=== PATIENT | male | born 1990 | race Caucasian/White ===

== ENCOUNTER 2016-12-05 02:37 | Emergency (ER) | payer SELFPAY ==
[2016-12-05 02:54] VITALS: RESP 16; TEMP 97.3
--- NOTE | 2016-12-05 03:21 | ED ---
General Adult HPI - General Source: police, EMS Mode of arrival: EMS Limitations: no limitations <Rosalind Frias - Last Filed: 12/07/16 15:08> - History of Present Illness -: minutes(s) Quality: sharp Consistency: constant Improves with: none Worsens with: none <Doron Navarro - Last Filed: 12/28/16 07:35> - General Chief complaint: Wound/Laceration Stated complaint: laceration - History of Present Illness Initial comments: Patient is 26-year-old man who is in police custody. He is brought to be evaluated for a laceration to his fifth digit sustained when he punched a window , breaking it. The patient denies foreign body sensation. He states that he does have sensation to the digit. (Doron Navarro) - Related Data Allergies Allergy/AdvReac Type Severity Reaction Status Date / Time Penicillins Allergy Unknown Verified 12/05/16 02:45 Review of Systems ROS Other: All systems not noted in ROS Statement are negative. <Rosalind Frias - Last Filed: 12/07/16 15:08> ROS Other: All systems not noted in ROS Statement are negative. Constitutional: Denies: fever, weakness Respiratory: Denies: dyspnea Cardiovascular: Denies: chest pain Skin: Reports: as per HPI, other (Laceration) Neurological: Denies: weakness, numbness, paresthesias <Doron Navarro - Last Filed: 12/28/16 07:35> ROS Statement: Those systems with pertinent positive or pertinent negative responses have been documented in the HPI. Past Medical History Past Medical History: No Reported History History of Any Multi-Drug Resistant Organisms: None Reported Past Surgical History: No Surgical Hx Reported Past Psychological History: No Psychological Hx Reported Smoking Status: Current every day smoker Past Alcohol Use History: Occasional Past Drug Use History: Marijuana <Rosalind Frias - Last Filed: 12/07/16 15:08> General Exam Limitations: no limitations <Rosalind Frias - Last Filed: 12/07/16 15:08> General appearance: alert, in no apparent distress Head exam: Present: atraumatic, normocephalic Left Hand Wrist exam: Present: other (Laceration to the fifth digit.) Neurosensory exam: Present: 2-point discrimination, radial nerve intact, ulnar nerve intact, median nerve intact Vascular: Present: normal capillary refill, radial pulse (Normal), ulnar pulse ( Normal). Absent: vascular compromise Neurological exam: Present: alert. Absent: motor sensory deficit Skin exam: Present: other (Laceration as above) <RamonDoron - Last Filed: 12/28/16 07:35> Procedures <Rosalind Frias - Last Filed: 12/07/16 15:08> <RamonDoron - Last Filed: 12/28/16 07:35> - Procedures Initial comment: The skin was anesthetized with 1% lidocaine. The laceration was then cleansed and irrigated with normal saline. The wound was inspected, and there was no evidence of injury to deep structures. No foreign body was noted in the wound. A total of 9 skin sutures were placed utilizing 5-0 Ethilon. Lacerations are approx 1 cm and 1 cm. (Rosalind Frias) Disposition <Rosalind Frias - Last Filed: 12/07/16 15:08> - Out of Hospital Transfer - Req. Specs Out of Hospital Transfer - Requested Specifics: Other Non-Acute (Detention) <RamonDoron - Last Filed: 12/28/16 07:35> Clinical Impression: Laceration Disposition: OTHER INSTITUTION NOT DEFINED Condition: Fair Instructions: Care For Your Stitches (ED), Laceration (ED) Referrals: None,Stated [Primary Care Provider] - 1-2 days
[2016-12-05 03:50] VITALS: BP 109/84; PULSE 86
== END 2016-12-05 03:49 | disposition other institution (70) ==
LOC: EC 02:37
DX: S61.217A Laceration without foreign body of left little finger without damage to nail, initial encounter (principal); Z88.0 Allergy status to penicillin; F17.200 Nicotine dependence, unspecified, uncomplicated; X58.XXXA Exposure to other specified factors, initial encounter
CPT/HCPCS: 12001; 99283

== ENCOUNTER 2020-04-02 12:35 | Emergency (ER) | payer BC ==
[2020-04-02 12:52] VITALS: TEMP 98.9
[2020-04-02] MEDS ORDERED: LORazepam 1 MG TAB PO STA (13:50)
[2020-04-02] MEDS ORDERED: ONDANSETRON ODT 4 MG TAB PO STA (13:50)
[2020-04-02] MEDS ORDERED: ONDANSETRON 4 MG ODT STARTER PACK 2 TAB BTL PO STA (13:54)
--- NOTE | 2020-04-02 13:54 | ED ---
General Adult HPI - General Chief complaint: Recheck/Abnormal Lab/Rx Stated complaint: Dehydrated Time Seen by Provider: 04/02/20 12:50 Source: patient, RN notes reviewed, old records reviewed Mode of arrival: ambulatory Limitations: no limitations - History of Present Illness Initial comments: This is a 30-year-old male who presents emergency Department complaining that he is extremely hung over thinks she's dehydrated. Patient states she's very nauseated since been difficult to drink any water. Patient does not want any IV or needles to draw blood. Patient states he just needs some for nausea. Patient denies any chest pain difficulty breathing first breath per patient denies any recent fever chills or cough. Patient states he is doing outpatient rehab with [facility] but he is failing. - Related Data Allergies Allergy/AdvReac Type Severity Reaction Status Date / Time Penicillins Allergy Unknown Verified 04/02/20 12:52 Review of Systems ROS Statement: Those systems with pertinent positive or pertinent negative responses have been documented in the HPI. ROS Other: All systems not noted in ROS Statement are negative. Past Medical History Past Medical History: No Reported History History of Any Multi-Drug Resistant Organisms: None Reported Past Surgical History: No Surgical Hx Reported Past Psychological History: No Psychological Hx Reported Smoking Status: Current every day smoker Past Alcohol Use History: Abuse, Heavy Past Drug Use History: Marijuana General Exam - General Exam Comments Initial Comments: GENERAL: Patient is well-developed and well-nourished. Patient is nontoxic and well- hydrated and is in no acute distress. ENT: Neck is soft and supple. No significant lymphadenopathy is noted. Oropharynx is clear. Dry mucous membranes. Neck has full range of motion without eliciting any pain. EYES: The sclera were anicteric and conjunctiva were pink and moist. Extraocular movements were intact and pupils were equal round and reactive to light. Eyelids were unremarkable. PULMONARY: Unlabored respirations. Good breath sounds bilaterally. No audible rales rhonchi or wheezing was noted. CARDIOVASCULAR: There is a regular rate and rhythm without any murmurs gallops or rubs. ABDOMEN: Soft and nontender with normal bowel sounds. No palpable organomegaly was noted. There is no palpable pulsatile mass. SKIN: Skin is clear with no lesions or rashes and otherwise unremarkable. NEUROLOGIC: Patient is alert and oriented x3. Cranial nerves II through XII are grossly intact. Motor and sensory are also intact. Normal speech, volume and content. Symmetrical smile. MUSCULOSKELETAL: Normal extremities with adequate strength and full range of motion. LYMPHATICS: No significant lymphadenopathy is noted PSYCHIATRIC: Patient appears to be very anxious Limitations: no limitations Course Vital Signs 04/02/20 12:49 Temperature 98.9 F Pulse Rate 104 H Respiratory 18 Rate Blood Pressure 146/94 O2 Sat by Pulse 98 Oximetry Disposition Clinical Impression: Dehydration, Hangover, Alcohol abuse Disposition: HOME SELF-CARE Condition: Good Instructions (If sedation given, give patient instructions): Abuse of Alcohol (ED) Is patient prescribed a controlled substance at d/c from ED?: No Referrals: None,Stated [Primary Care Provider] - 1-2 days Time of Disposition: 13:54
[2020-04-02 14:09] VITALS: BP 145/94; PULSE 100
[2020-04-02 14:11] VITALS: RESP 20
== END 2020-04-02 14:11 | disposition home or self-care (01) ==
LOC: EC 12:35
DX: F10.129 Alcohol abuse with intoxication, unspecified (principal); E86.0 Dehydration; F17.200 Nicotine dependence, unspecified, uncomplicated; Z88.0 Allergy status to penicillin; Y90.9 Presence of alcohol in blood, level not specified
CPT/HCPCS: 99284; S0119

== ENCOUNTER 2021-01-17 11:31 | Emergency (ER) | payer BC, OTHER ==
[2021-01-17 11:37] VITALS: RESP 18; TEMP 98.7
[2021-01-17] MEDS ORDERED: SODIUM CHLORIDE 0.9% 2,000 ML IV STA (11:47)
[2021-01-17] MEDS ORDERED: ONDANSETRON 4 MG/2 ML VIAL IVP STA ×2 (11:47→13:39)
[2021-01-17] MEDS ORDERED: LORazepam 2 MG/ML INJ IV STA (11:48)
--- NOTE | 2021-01-17 11:50 | ED ---
General Adult HPI - General Chief complaint: Nausea/Vomiting/Diarrhea Stated complaint: N/V/D Time Seen by Provider: 01/17/21 11:38 Source: patient, RN notes reviewed Mode of arrival: ambulatory Limitations: no limitations - History of Present Illness Initial comments: 31-year-old male with a past medical history of heavy alcohol abuse, marijuana use presents to the emergency room for a little nausea vomiting. Patient states he has had nausea and vomiting for the past 3 days. He states that his drinking is probably not helped. States he usually sticks to drinking on the weekends but has drank the last 2 nights. States of complaint of vodka last night. Patient denies any abdominal pain. He does admit to a few episodes of diarrhea. Patient has no other complaints at this time including shortness of breath, chest pain, abdominal pain, headache, or visual changes. - Related Data Home Medications Medication Instructions Recorded Confirmed Citalopram Hydrobromide 20 mg PO HS 01/17/21 01/17/21 [Citalopram HBr] atenoloL [Atenolol] 25 mg PO DAILY 01/17/21 01/17/21 Previous Rx's Medication Instructions Recorded Ondansetron [Zofran ODT] 4 mg PO Q8HR PRN #15 tab 01/17/21 Allergies Allergy/AdvReac Type Severity Reaction Status Date / Time Penicillins Allergy Unknown Verified 01/17/21 12:40 Review of Systems ROS Statement: Those systems with pertinent positive or pertinent negative responses have been documented in the HPI. ROS Other: All systems not noted in ROS Statement are negative. Past Medical History Past Medical History: No Reported History History of Any Multi-Drug Resistant Organisms: None Reported Past Surgical History: No Surgical Hx Reported Past Psychological History: Anxiety, Depression Smoking Status: Current every day smoker Past Alcohol Use History: Abuse, Heavy Past Drug Use History: Marijuana General Exam Limitations: no limitations General appearance: alert, in no apparent distress Head exam: Present: atraumatic, normocephalic, normal inspection Eye exam: Present: normal appearance, PERRL, EOMI. Absent: scleral icterus, conjunctival injection, periorbital swelling ENT exam: Present: normal exam, mucous membranes moist Neck exam: Present: normal inspection. Absent: tenderness, meningismus, lymphadenopathy Respiratory exam: Present: normal lung sounds bilaterally. Absent: respiratory distress, wheezes, rales, rhonchi, stridor Cardiovascular Exam: Present: regular rate, normal rhythm, normal heart sounds. Absent: systolic murmur, diastolic murmur, rubs, gallop, clicks GI/Abdominal exam: Present: soft, normal bowel sounds. Absent: distended, tenderness, guarding, rebound, rigid Course Vital Signs 01/17/21 01/17/21 01/17/21 11:34 12:37 13:00 Temperature 98.7 F Pulse Rate 137 H 116 H 120 H Respiratory 18 18 18 Rate Blood Pressure 134/91 139/105 141/102 O2 Sat by Pulse 96 96 96 Oximetry Medical Decision Making - Medical Decision Making Patient presents with tachycardia. This is likely secondary to alcohol withdrawals. Laboratory evaluation was obtained. CBC does show hemoconcentration secondary to dehydration. CMP also reveals evidence of dehydr ation. Transaminitis is likely secondary to alcohol abuse. AG of 22 likely related to alcoholic ketosis. Serum alcohol today is 152. Patient was monitored in the ER for over 3 hours. He was given 2 L of fluid. He was given antiemetics. The vomiting has subsided. Patient was given Ativan and Valium for withdrawal symptoms. At this time patient is stable for discharge home. Will return here for any worsening symptoms. I discussed this case with attending Dr. nguyễn who agrees with this assessment and treatment plan. - Lab Data Result diagrams: 01/17/21 11:58 01/17/21 11:58 Lab Results 01/17/21 01/17/21 01/17/21 Range/Units 11:49 11:58 11:58 WBC 7.9 (3.8-10.6) k/uL RBC 5.34 (4.30-5.90) m/uL Hgb 18.4 H (13.0-17.5) gm/dL Hct 50.9 (39.0-53.0) % MCV 95.4 (80.0-100.0) fL MCH 34.4 (25.0-35.0) pg MCHC 36.1 (31.0-37.0) g/dL RDW 12.4 (11.5-15.5) % Plt Count 315 (150-450) k/uL MPV 7.1 Neutrophils % 77 % Lymphocytes % 15 % Monocytes % 6 % Eosinophils % 1 % Basophils % 0 % Neutrophils # 6.1 (1.3-7.7) k/uL Lymphocytes # 1.2 (1.0-4.8) k/uL Monocytes # 0.5 (0-1.0) k/uL Eosinophils # 0.0 (0-0.7) k/uL Basophils # 0.0 (0-0.2) k/uL Sodium 137 (137-145) mmol/L Potassium 4.1 (3.5-5.1) mmol/L Chloride 101 (98-107) mmol/L Carbon Dioxide 14 L (22-30) mmol/L Anion Gap 22 mmol/L BUN 21 H (9-20) mg/dL Creatinine 1.26 H (0.66-1.25) mg/dL Est GFR (CKD-EPI)AfAm 89 (>60 ml/min/1.73 sqM) Est GFR (CKD-EPI)NonAf 77 (>60 ml/min/1.73 sqM) Glucose 109 H (74-99) mg/dL Calcium 9.4 (8.4-10.2) mg/dL Total Bilirubin 1.0 (0.2-1.3) mg/dL AST 397 H (17-59) U/L ALT 182 H (4-49) U/L Alkaline Phosphatase 98 (38-126) U/L Total Protein 8.5 H (6.3-8.2) g/dL Albumin 4.8 (3.5-5.0) g/dL Amylase 83 (30-110) U/L Lipase 302 H (23-300) U/L Serum Alcohol 152 mg/dL Coronavirus (PCR) Not Detected (Not Detectd) Disposition Clinical Impression: Nausea & vomiting, Alcohol withdrawal Disposition: HOME SELF-CARE Condition: Good Instructions (If sedation given, give patient instructions): Acute Nausea and Vomiting (ED) Additional Instructions: Please follow up with primary care in 1-2 days. Take nausea medicine as needed. Drink plenty of fluids. Return to the ER for any worsening symptoms. Prescriptions: Ondansetron [Zofran ODT] 4 mg PO Q8HR PRN #15 tab PRN Reason: Nausea Is patient prescribed a controlled substance at d/c from ED?: No Referrals: Haim Dent MD [Primary Care Provider] - 1-2 days Time of Disposition: 14:41
[2021-01-17 12:21] LABS: Basophils % (A) 0 %; Eosinophils % (A) 1 %; HCT 50.9 % (39.0-53.0); HGB 18.4 gm/dL (13.0-17.5); Lymphocytes # (A) 1.2 k/uL (1.0-4.8); Lymphocytes % (A) 15 %; MCH 34.4 pg (25.0-35.0); MCHC 36.1 g/dL (31.0-37.0); MCV 95.4 fL (80.0-100.0); Mean Platelet Volume 7.1; Monocytes # (A) 0.5 k/uL (0-1.0); Monocytes % (A) 6 %; Neutrophils # (A) 6.1 k/uL (1.3-7.7); Neutrophils % (A) 77 %; Platelet Count 315 k/uL (150-450); RBC 5.34 m/uL (4.30-5.90); RDW 12.4 % (11.5-15.5); WBC 7.9 k/uL (3.8-10.6)
[2021-01-17 12:33] LABS: Albumin 4.8 g/dL (3.5-5.0); Calcium 9.4 mg/dL (8.4-10.2); Potassium 4.1 mmol/L (3.5-5.1); Total Protein 8.5 g/dL (6.3-8.2)
[2021-01-17] MEDS ORDERED: DIAZEPAM 5 MG/ML 2 ML INJ IVP STA (13:38)
[2021-01-17 14:58] VITALS: BP 145/90; PULSE 108
== END 2021-01-17 14:57 | disposition home or self-care (01) ==
LOC: EC 11:31
DX: F10.139 Alcohol abuse with withdrawal, unspecified (principal); F12.90 Cannabis use, unspecified, uncomplicated; F41.9 Anxiety disorder, unspecified; F32.9 Major depressive disorder, single episode, unspecified; F17.200 Nicotine dependence, unspecified, uncomplicated; Z88.0 Allergy status to penicillin; Z20.822 Contact with and (suspected) exposure to COVID-19
CPT/HCPCS: 36415; 80053; 82150; 83690; 85025; 87635; 99284; 96374; 96375; 96376; 96361; G0480; J2060; J3360; J2405; 80320

== ENCOUNTER 2023-08-01 09:44 | Observation (INO) | payer OTHER ==
--- NOTE | 2023-08-01 15:07 | ED ---
General Adult HPI - General Source: patient, RN notes reviewed, old records reviewed Mode of arrival: ambulatory Limitations: no limitations <Dg Todd - Last Filed: 08/01/23 14:57> - History of Present Illness -: days(s) Consistency: constant Improves with: none Worsens with: none Treatments Prior to Arrival: none <Manuel Rayo - Last Filed: 08/03/23 23:47> - General Chief complaint: Psychiatric Symptoms Stated complaint: Mental Health Time Seen by Provider: 08/01/23 09:51 - History of Present Illness Initial comments: Patient is a 33-year-old male who presents emergency Department complaining of psychiatric complaints. He is feeling suicidal. Recently completed withdrawing from alcohol. No longer having symptoms. States he is having thoughts of hurting himself and occasionally others. No plans or attempts. Endorses worsening depression. His home stressors. No other acute complaints at this time. Presents for further evaluation at this time. (Dg Todd) 33 male DF for psychiatric evaluation secondary to suicidal thoughts. Severe depression with acute on stressors recently which then went to detox from alcohol (Manuel Rayo) - Related Data Home Medications Medication Instructions Recorded Confirmed Fenofibrate,Micronized 134 mg PO DAILY 08/01/23 08/01/23 [Fenofibrate] Mag Hydrox/Aluminum Hyd/Simeth 10 - 20 ml PO ACHS PRN 08/01/23 08/01/23 [Mylanta Maximum Strength Liq] Multivitamins, Thera [Multivitamin 1 tab PO DAILY 08/01/23 08/01/23 (formulary)] Vitamin B Complex 1 cap PO DAILY 08/01/23 08/01/23 traZODone HCL [Desyrel] 50 mg PO HS PRN 08/02/23 08/02/23 Previous Rx's Medication Instructions Recorded Metoprolol Succinate (ER) [Toprol 25 mg PO DAILY #30 tab 08/02/23 Xl] Allergies Allergy/AdvReac Type Severity Reaction Status Date / Time Penicillins Allergy Rash/Hives Verified 08/01/23 18:19 Review of Systems ROS Other: All systems not noted in ROS Statement are negative. <Dg Todd - Last Filed: 08/01/23 14:57> ROS Other: All systems not noted in ROS Statement are negative. <Manuel Rayo - Last Filed: 08/03/23 23:47> ROS Statement: Those systems with pertinent positive or pertinent negative responses have been documented in the HPI. Review of Systems: CONST: Denies fever EYES: Denies blurry vision ENT: Denies nasal congestion C/V: Denies Chest pain RESP: Denies shortness of breath GI: Denies abdominal pain : Denies dysuria SKIN: Denies rash. MSK: Denies joint pain. NEURO: Denies headache PSYCH: Denies suicidal and homicidal plans/attempts but endorses ideations. Denies visual or auditory hallucinations. (Dg Todd) Past Medical History Past Medical History: Hypertension Additional Past Medical History / Comment(s): Etoh abuse History of Any Multi-Drug Resistant Organisms: None Reported Past Surgical History: No Surgical Hx Reported Past Psychological History: Anxiety, Depression Smoking Status: Current every day smoker Past Alcohol Use History: Abuse, Daily, Heavy Past Drug Use History: Marijuana <Dg Todd - Last Filed: 08/01/23 14:57> General Exam Limitations: no limitations <Dg Todd - Last Filed: 08/01/23 14:57> General appearance: alert, in no apparent distress, anxious, in distress Head exam: Present: atraumatic, normocephalic, normal inspection Eye exam: Present: normal appearance, PERRL, EOMI. Absent: scleral icterus, conjunctival injection, periorbital swelling ENT exam: Present: normal exam, mucous membranes moist Neck exam: Present: normal inspection. Absent: tenderness, meningismus, lymphadenopathy Respiratory exam: Present: normal lung sounds bilaterally. Absent: respiratory distress, wheezes, rales, rhonchi, stridor Cardiovascular Exam: Present: regular rate, normal rhythm, normal heart sounds. Absent: systolic murmur, diastolic murmur, rubs, gallop, clicks GI/Abdominal exam: Present: soft, normal bowel sounds. Absent: distended, tenderness, guarding, rebound, rigid Extremities exam: Present: normal inspection, full ROM, normal capillary refill. Absent: tenderness, pedal edema, joint swelling, calf tenderness Back exam: Present: normal inspection Neurological exam: Present: alert, oriented X3, CN II-XII intact Psychiatric exam: Present: normal affect, normal mood Skin exam: Present: warm, dry, intact, normal color. Absent: rash <Manuel Rayo - Last Filed: 08/03/23 23:47> - General Exam Comments Initial Comments: General: Appears in no acute distress. No evidence of alcohol withdrawals at this time. HEAD: Normal with no signs of head trauma. EYES: PERRLA, EOMI, conjunctiva normal, no discharge. ENT: Hearing grossly intact, normal oropharynx. RESPIRATORY: Clear breath sounds bilaterally. No wheezes, rales, or rhonchi. C/V: Regular rate and rhythm. S1 and S2 auscultated, no edema, peripheral pulses 2+ and intact throughout ABD: Abd is soft, nontender, nondistended EXT: Normal range of motion, no obvious deformity SKIN: No rashes or lesions observed on exposed skin. NEURO: Alert and oriented x 4. (Dg Todd) Course <Manuel Rayo - Last Filed: 08/03/23 23:47> Vital Signs 08/01/23 08/01/23 09:47 21:27 Temperature 97.7 F Pulse Rate 70 92 Respiratory 20 18 Rate Blood Pressure 129/94 138/94 O2 Sat by Pulse 99 98 Oximetry - Reevaluation(s) Reevaluation #1: 08/01/23 20:40 Medical records reviewed (Manuel Rayo) Reevaluation #2: 08/01/23 20:40 Patient is depressed and medical clear for psychiatric evaluation (Manuel Rayo) Reevaluation #3: 08/01/23 20:40 Patient informed results questions answered (Manuel Rayo) Reevaluation #4: 08/01/23 20:40 Was pt. sent in by a medical professional or institution (, PA, RUBBER GOODS INSPECTOR, urgent care, hospital, or fdc...) When possible be specific @ -no Did you speak to anyone other than the patient for history (EMS, parent, family, police, friend...)? What history was obtained from this source @ -no Did you review nursing and triage notes (agree or disagree)? Why? @ -agree Are old charts reviewed (outside hosp., previous admission, EMS record, old EKG, old radiological studies, urgent care reports/EKG's, fdc records)? Report findings @ -yes Differential Diagnosis (chest pain, altered mental status, abdominal pain women, abdominal pain men, vaginal bleeding, weakness, fever, dyspnea, syncope, headache, dizziness, GI bleed, back pain, seizure, CVA, palpatations, mental health, musculoskeletal)? @ -prior EKG interpreted by me (3pts min.). @ -no X-rays interpreted by me (1pt min.). @ -no CT interpreted by me (1pt min.). @ -no U/S interpreted by me (1pt. min.). @ -no What testing was considered but not performed or refused? (CT, X-rays, U/S, labs)? Why? @ -none What meds were considered but not given or refused? Why? @ -none Did you discuss the management of the patient with other professionals (professionals i.e. , PA, RUBBER GOODS INSPECTOR, lab, RT, psych nurse, social sciences instructor, infrastructure solutions architect, teacher, community cultural development officer, comp field case manager)? Give summary @ -no Was smoking cessation discussed for >3mins.? @ -no Was critical care preformed (if so, how long)? @ -no Were there social determinants of health that impacted care today? How? (Homelessness, low income, unemployed, alcoholism, drug addiction, transportation, low edu. Level, literacy, decrease access to med. care, prison, rehab)? @ -none Was there de-escalation of care discussed even if they declined (Discuss DNR or withdrawal of care, Hospice)? DNR status @ -no What co-morbidities impacted this encounter? (DM, HTN, Smoking, COPD, CAD, Cancer, CVA, ARF, Chemo, Hep., AIDS, mental health diagnosis, sleep apnea, morbid obesity)? @ -none Was patient admitted / discharged? Hospital course, mention meds given and route, prescriptions, significant lab abnormalities, going to OR and other pertinent info. @ - 33 male to the emergency department for evaluation not stable for transfer to psychiatric inpatient, has been tonight secondary to alcoholic hepatitis. Patient will be admitted for psychiatric evaluation and suicidal ideation management Admitted Undiagnosed new problem with uncertain prognosis? @ -no Drug Therapy requiring intensive monitoring for toxicity (Heparin, Nitro, Insulin, Cardizem)? @ -no Were any procedures done? @ -no Diagnosis/symptom? @ -Occult hepatitis, suicidal ideation Acute, or Chronic, or Acute on Chronic? @ -Acute Uncomplicated (without systemic symptoms) or Complicated (systemic symptoms)? @ -Complicated Side effects of treatment? @ -no Exacerbation, Progression, or Severe Exacerbation? @ -exacerbation Poses a threat to life or bodily function? How? (Chest pain, [place], [place], pneumonia, PE, COPD, DKA, ARF, appy, cholecystitis, CVA, Diverticulitis, Homicidal, Suicidal, threat to staff... and all critical care pts) @ -yes (Manuel Rayo) Medical Decision Making <Dg Todd - Last Filed: 08/01/23 14:57> - Lab Data Result diagrams: 08/02/23 04:41 08/02/23 04:41 <Manuel Rayo - Last Filed: 08/03/23 23:47> - Medical Decision Making Was pt. sent in by a medical professional or institution (, PA, RUBBER GOODS INSPECTOR, urgent care, hospital, or fdc...) When possible be specific @ -No Did you speak to anyone other than the patient for history (EMS, parent, family, police, friend...)? What history was obtained from this source @ -No Did you review nursing and triage notes (agree or disagree)? Why? @ -I reviewed and agree with nursing and triage notes Were old charts reviewed (outside hosp., previous admission, EMS record, old EKG, old radiological studies, urgent care reports/EKG's, fdc records)? Report findings @ -No old charts were reviewed Differential Diagnosis (chest pain, altered mental status, abdominal pain women, abdominal pain men, vaginal bleeding, weakness, fever, dyspnea, syncope, headache, dizziness, GI bleed, back pain, seizure, CVA, palpatations, mental health, musculoskeletal)? @ -Differential Mental Health Depression, anxiety, bipolar, psychosis, schizophrenia, borderline personality, situational depression, adjustment disorder, behavioral disorder, brain tumor, malingering, substance abuse, encephalopathy, medication reaction, dementia, hypothyroidism, degenerative neurologic disorder, lupus.... This is not meant to be all-inclusive list EKG interpreted by me (3pts min.). @ -None done X-rays interpreted by me (1pt min.). @ -None done CT interpreted by me (1pt min.). @ -None done U/S interpreted by me (1pt. min.). @ -None done What testing was considered but not performed or refused? (CT, X-rays, U/S, labs)? Why? @ -None What meds were considered but not given or refused? Why? @ -None Did you discuss the management of the patient with other professionals (professionals i.e. Dr., PA, RUBBER GOODS INSPECTOR, lab, RT, psych nurse, social sciences instructor, infrastructure solutions architect, teacher, community cultural development officer, comp field case manager)? Give summary @ -No Was smoking cessation discussed for >3mins.? @ -No Was critical care preformed (if so, how long)? @ -No Were there social determinants of health that impacted care today? How? (Homelessness, low income, unemployed, alcoholism, drug addiction, hoffman sportation, low edu. Level, literacy, decrease access to med. care, prison, rehab)? @ -No Was there de-escalation of care discussed even if they declined (Discuss DNR or withdrawal of care, Hospice)? DNR status @ -No What co-morbidities impacted this encounter? (DM, HTN, Smoking, COPD, CAD, Cancer, CVA, ARF, Chemo, Hep., AIDS, mental health diagnosis, sleep apnea, morbid obesity)? @ -None Was patient admitted / discharged? Hospital course, mention meds given and route, prescriptions, significant lab abnormalities, going to OR and other pertinent info. @ -Based on patient's presentation and physical exam, presents for psychiatric evaluation. Vital signs within acceptable limits. Patient placed in green scrubs. Sitter and suicide precautions ordered. BAT is 0. UDS is pending. At this time patient medically cleared for evaluation by psychiatry. Disposi tion pending psychiatric evaluation. EPS notified for consult. EPS Megan updated me the patient is pending inpatient admission. Patient be transferred for psychiatric admission. Clinical certificate completed by myself. Undiagnosed new problem with uncertain prognosis? @ -No Drug Therapy requiring intensive monitoring for toxicity (Heparin, Nitro, Insulin, Cardizem)? @ -No Were any procedures done? @ -No Diagnosis/symptom? @ -Encounter for psychiatric evaluation, suicidal ideations Acute, or Chronic, or Acute on Chronic? @ -Acute Uncomplicated (without systemic symptoms) or Complicated (systemic symptoms)? @ -Uncomplicated Side effects of treatment? @ -No Exacerbation, Progression, or Severe Exacerbation? @ -No Poses a threat to life or bodily function? How? (Chest pain, [place], [place], pneumonia, PE, COPD, DKA, ARF, appy, cholecystitis, CVA, Diverticulitis, Homicidal, Suicidal, threat to staff... and all critical care pts) @ -Yes (Dg Todd) 33 male who will be admitted for psychiatric evaluation and treatment patient does have significant alcoholic hepatitis and doesn't admit for transfer to outside facility. Due to patient's complicated condition patient will be admitted here for psychiatric evaluation and medical evaluation of hepatitis (Manuel Rayo) - Lab Data Lab Results 08/01/23 08/01/23 08/01/23 Range/Units 15:51 15:51 15:51 WBC 8.9 (3.8-10.6) k/uL RBC 5.42 (4.30-5.90) m/uL Hgb 18.2 H (13.0-17.5) gm/dL Hct 52.5 (39.0-53.0) % MCV 96.9 (80.0-100.0) fL MCH 33.7 (25.0-35.0) pg MCHC 34.7 (31.0-37.0) g/dL RDW 13.1 (11.5-15.5) % Plt Count 260 (150-450) k/uL MPV 7.4 Sodium (137-145) mmol/L Potassium (3.5-5.1) mmol/L Chloride (98-107) mmol/L Carbon Dioxide (22-30) mmol/L Anion Gap mmol/L BUN (9-20) mg/dL Creatinine (0.66-1.25) mg/dL Est GFR (CKD-EPI)AfAm (>60 ml/min/1.73 sqM) Est GFR (CKD-EPI)NonAf (>60 ml/min/1.73 sqM) Glucose (74-99) mg/dL Calcium (8.4-10.2) mg/dL Total Bilirubin (0.2-1.3) mg/dL AST (17-59) U/L ALT (4-49) U/L Alkaline Phosphatase (38-126) U/L Total Protein (6.3-8.2) g/dL Albumin (3.5-5.0) g/dL Urine Color Yellow Urine Appearance Clear (Clear) Urine pH 6.0 (5.0-8.0) Ur Specific [place] 1.029 (1.001-1.035) Urine Protein 1+ H (Negative) Urine Glucose (UA) Negative (Negative) Urine Ketones Negative (Negative) Urine Blood Negative (Negative) Urine Nitrite Negative (Negative) Urine Bilirubin Negative (Negative) Urine Urobilinogen 3.0 (<2.0) mg/dL Ur Leukocyte Esterase Negative (Negative) Urine RBC 1 (0-5) /hpf Urine WBC <1 (0-5) /hpf Urine Mucus Many H (None) /hpf Urine Opiates Screen Not Detected (NotDetected) Ur Oxycodone Screen Not Detected (NotDetected) Urine Methadone Screen Not Detected (NotDetected) Ur Propoxyphene Screen Not Detected (NotDetected) Ur Barbiturates Screen Not Detected (NotDetected) U Tricyclic Antidepress Not Detected (NotDetected) Ur Phencyclidine Scrn Not Detected (NotDetected) Ur Amphetamines Screen Not Detected (NotDetected) U Methamphetamines Scrn Not Detected (NotDetected) U Benzodiazepines Scrn Not Detected (NotDetected) Urine Cocaine Screen Not Detected (NotDetected) U Marijuana (THC) Screen Detected H (NotDetected) Coronavirus (PCR) (Not Detectd) 08/01/23 08/01/23 Range/Units 15:51 15:51 WBC (3.8-10.6) k/uL RBC (4.30-5.90) m/uL Hgb (13.0-17.5) gm/dL Hct (39.0-53.0) % MCV (80.0-100.0) fL MCH (25.0-35.0) pg MCHC (31.0-37.0) g/dL RDW (11.5-15.5) % Plt Count (150-450) k/uL MPV Sodium 134 L (137-145) mmol/L Potassium 4.2 (3.5-5.1) mmol/L Chloride 100 (98-107) mmol/L Carbon Dioxide 23 (22-30) mmol/L Anion Gap 11 mmol/L BUN 16 (9-20) mg/dL Creatinine 1.14 (0.66-1.25) mg/dL Est GFR (CKD-EPI)AfAm >90 (>60 ml/min/1.73 sqM) Est GFR (CKD-EPI)NonAf 86 (>60 ml/min/1.73 sqM) Glucose 107 H (74-99) mg/dL Calcium 9.5 (8.4-10.2) mg/dL Total Bilirubin 1.4 H (0.2-1.3) mg/dL AST 228 H (17-59) U/L ALT 148 H (4-49) U/L Alkaline Phosphatase 76 (38-126) U/L Total Protein 8.2 (6.3-8.2) g/dL Albumin 4.4 (3.5-5.0) g/dL Urine Color Urine Appearance (Clear) Urine pH (5.0-8.0) Ur Specific [place] (1.001-1.035) Urine Protein (Negative) Urine Glucose (UA) (Negative) Urine Ketones (Negative) Urine Blood (Negative) Urine Nitrite (Negative) Urine Bilirubin (Negative) Urine Urobilinogen (<2.0) mg/dL Ur Leukocyte Esterase (Negative) Urine RBC (0-5) /hpf Urine WBC (0-5) /hpf Urine Mucus (None) /hpf Urine Opiates Screen (NotDetected) Ur Oxycodone Screen (NotDetected) Urine Methadone Screen (NotDetected) Ur Propoxyphene Screen (NotDetected) Ur Barbiturates Screen (NotDetected) U Tricyclic Antidepress (NotDetected) Ur Phencyclidine Scrn (NotDetected) Ur Amphetamines Screen (NotDetected) U Methamphetamines Scrn (NotDetected) U Benzodiazepines Scrn (NotDetected) Urine Cocaine Screen (NotDetected) U Marijuana (THC) Screen (NotDetected) Coronavirus (PCR) Not Detected (Not Detectd) Disposition <Dg Todd - Last Filed: 08/01/23 14:57> Is patient prescribed a controlled substance at d/c from ED?: No Time of Disposition: 20:40 <Manuel Rayo - Last Filed: 08/03/23 23:47> Clinical Impression: Encounter for psychological evaluation, Suicidal ideation, Alcoholic hepatitis, Depression Disposition: ADMITTED IP TO THIS HOSP Condition: Fair
[2023-08-01 16:03] LABS: HCT 52.5 % (39.0-53.0); HGB 18.2 gm/dL (13.0-17.5); MCH 33.7 pg (25.0-35.0); MCHC 34.7 g/dL (31.0-37.0); MCV 96.9 fL (80.0-100.0); Mean Platelet Volume 7.4; Platelet Count 260 k/uL (150-450); RBC 5.42 m/uL (4.30-5.90); RDW 13.1 % (11.5-15.5); WBC 8.9 k/uL (3.8-10.6)
[2023-08-01 16:22] LABS: ALT 148 U/L (4-49); AST 228 U/L (17-59); African American GFR (CKD) >90 (>60 ml/min/1.73 sqM); Albumin 4.4 g/dL (3.5-5.0); Alkaline Phosphatase 76 U/L (38-126); Anion Gap 11 mmol/L; Blood Urea Nitrogen 16 mg/dL (9-20); Calcium 9.5 mg/dL (8.4-10.2); Carbon Dioxide 23 mmol/L (22-30); Chloride 100 mmol/L (98-107); Glucose 107 mg/dL (74-99); Non-African American GFR(CKD) 86 (>60 ml/min/1.73 sqM); Potassium 4.2 mmol/L (3.5-5.1); Sodium 134 mmol/L (137-145); Total Bilirubin 1.4 mg/dL (0.2-1.3); Total Protein 8.2 g/dL (6.3-8.2)
[2023-08-01 19:13] LABS: Appearance,Urine Clear (Clear); Bilirubin,Urine Negative (Negative); Blood,Urine Negative (Negative); Color,Urine Yellow; Glucose,Urine (UA) Negative (Negative); Ketones,Urine Negative (Negative); Leukocyte Esterase,Urine Negative (Negative); Mucus,Urine Many /hpf; Nitrite,Urine Negative (Negative); Protein,Urine 1+ (Negative); RBC,Urine 1 /hpf (0-5); Specific Gravity,Urine 1.029 (1.001-1.035); WBC,Urine <1 /hpf (0-5)
[2023-08-01 19:35] LABS: Amphetamine Screen,Urine Not Detected (NotDetected); Barbiturate Screen,Urine Not Detected (NotDetected); Benzodiazepines Screen,Urine Not Detected (NotDetected); Cocaine Screen,Urine Not Detected (NotDetected); Methadone Screen, Urine Not Detected (NotDetected); Opiate Screen,Urine Not Detected (NotDetected); Oxycodone Screen, Urine Not Detected (NotDetected); Phencyclidine Screen,Urine Not Detected (NotDetected); Tricyclic Antidepressant,Urine Not Detected (NotDetected); Urn Cannabinoid Scrn Detected (NotDetected)
[2023-08-01] MEDS ORDERED: ONDANSETRON 4 MG/2 ML VIAL IVP PRN (20:37)
[2023-08-01] MEDS ORDERED: NALOXONE 0.4 MG/ML 1 ML VIAL IV PRN (20:37)
[2023-08-01] MEDS ORDERED: LORazepam 2 MG/ML INJ IV PRN ×3 (20:39)
[2023-08-01] MEDS: SODIUM CHLORIDE 0.9% 1,000 ML IV SCH ×2 (21:22→22:29)
[2023-08-02 05:32] LABS: Basophils % (A) 0 %; Eosinophils # (A) 0.2 k/uL (0-0.7); Eosinophils % (A) 3 %; HCT 46.2 % (39.0-53.0); HGB 15.7 gm/dL (13.0-17.5); Lymphocytes # (A) 1.8 k/uL (1.0-4.8); Lymphocytes % (A) 32 %; MCH 34.1 pg (25.0-35.0); MCHC 33.9 g/dL (31.0-37.0); MCV 100.6 fL (80.0-100.0); Mean Platelet Volume 7.4; Monocytes # (A) 0.5 k/uL (0-1.0); Monocytes % (A) 8 %; Neutrophils # (A) 3.2 k/uL (1.3-7.7); Neutrophils % (A) 55 %; Platelet Count 180 k/uL (150-450); RBC 4.59 m/uL (4.30-5.90); RDW 13.2 % (11.5-15.5); WBC 5.7 k/uL (3.8-10.6)
[2023-08-02 05:50] LABS: ALT 157 U/L (4-49); AST 258 U/L (17-59); African American GFR (CKD) >90 (>60 ml/min/1.73 sqM); Albumin 3.6 g/dL (3.5-5.0); Alkaline Phosphatase 72 U/L (38-126); Anion Gap 7 mmol/L; Blood Urea Nitrogen 14 mg/dL (9-20); Calcium 8.5 mg/dL (8.4-10.2); Carbon Dioxide 23 mmol/L (22-30); Chloride 105 mmol/L (98-107); Glucose 101 mg/dL (74-99); Magnesium 2.1 mg/dL (1.6-2.3); Non-African American GFR(CKD) >90 (>60 ml/min/1.73 sqM); Phosphorus 3.7 mg/dL (2.5-4.5); Potassium 4.4 mmol/L (3.5-5.1); Sodium 135 mmol/L (137-145); Total Bilirubin 0.9 mg/dL (0.2-1.3); Total Protein 6.7 g/dL (6.3-8.2)
--- NOTE | 2023-08-02 07:09 | P.DS ---
Providers Date of admission: 08/01/23 20:37 Attending physician: Jose De Jesus Aleman Consults: 08/01/23 20:37 Consult Physician Routine Consulting Provider: Austyn Benavides Consult Reason/Comments: suicidal Do you want consulting provider notified?: Yes Primary care physician: Talha Garg [facility] Course: Patient is a 33-year-old pleasant male came in for alcohol withdrawals. Patient to stop drinking more than 2 days ago has been undergoing withdrawals. Although today he only received the 1 mg 1 time dose of Ativan so far since hospitalization. Patient withdraws significant improved. Patient is also depressed always has thoughts of doesn't want to live but doesn't have a plan for sweets side never attempted suicide. Patient does have history of hypertension and is on atenolol at home but his blood pressure is low normal patient is bit tachycardic at this time patient is receiving IV fluids denied any abdominal pain nausea vomiting patient drinks usually one fifth of alcohol on daily basis attempted to quit many times was unable to quit by himself. He does smoke marijuana occasionally REVIEW OF SYSTEMS: CONSTITUTIONAL: No fever, no malaise, no fatigue. HEENT: No recent visual problems or hearing problems. Denied any sore throat. CARDIOVASCULAR: No chest pain, orthopnea, PND, no palpitations, no syncope. PULMONARY: No shortness of breath, no cough, no hemoptysis. GASTROINTESTINAL: No diarrhea, no nausea, no vomiting, no abdominal pain. NEUROLOGICAL: No headaches, no weakness, no numbness. HEMATOLOGICAL: Denies any bleeding or petechiae. GENITOURINARY: Denies any burning micturition, frequency, or urgency. MUSCULOSKELETAL/RHEUMATOLOGICAL: Denies any joint pain, swelling, or any muscle pain. ENDOCRINE: Denies any polyuria or polydipsia. The rest of the 14-point review of systems is negative. PHYSICAL EXAMINATION: GENERAL: The patient is alert and oriented x3, not in any acute distress. Well developed, well nourished. HEENT: Pupils are round and equally reacting to light. EOMI. No scleral icterus. No conjunctival pallor. Normocephalic, atraumatic. No pharyngeal erythema. No thyromegaly. CARDIOVASCULAR: S1 and S2 present. No murmurs, rubs, or gallops. PULMONARY: Chest is clear to auscultation, no wheezing or crackles. ABDOMEN: Soft, nontender, nondistended, normoactive bowel sounds. No palpable organomegaly. MUSCULOSKELETAL: No joint swelling or deformity. EXTREMITIES: No cyanosis, clubbing, or pedal edema. NEUROLOGICAL: Gross neurological examination did not reveal any focal deficits. SKIN: No rashes. Assessment and plan -Alcohol withdrawals which improved patient will be monitored until later in the day when we and will be discharged on as needed Librium. As there is a concern about depression and trying to hurt himself patient will need clearance from psychiatry before can be discharged. -Alcohol abuse: Counseling was provided and the psychotherapist social worker will be consulted to provide him with the resources for cessation of alcohol -Tachycardia part of which is reflex tachycardia as he didn't receive his atenolol at this morning has patient's blood pressures his low switched to metoprolol -Hypertension presently hypotensive -Hyperlipidemia -Obesity Depression: Management as mentioned above -Acute alcoholic hepatitis expected to improve with cessation of alcohol -Hypervolemic hyponatremia improved with IV fluids Patient will be discharged today if cleared by psychiatry and after evaluation with social work Patient Condition at Discharge: Fair Plan - Discharge Summary New Discharge Prescriptions: New chlordiazePOXIDE HCl [Librium] 25 mg PO QID 3 Days #12 capsule Metoprolol Succinate (ER) [Toprol Xl] 25 mg PO DAILY #30 tab Continue Multivitamins, Thera [Multivitamin (formulary)] 1 tab PO DAILY Fenofibrate,Micronized [Fenofibrate] 134 mg PO DAILY Trazodone (Unknown Dose) 1 tab PO HS PRN PRN Reason: Insomnia Vitamin B Complex 1 cap PO DAILY Mag Hydrox/Aluminum Hyd/Simeth [Mylanta Maximum Strength Liq] 10 - 20 ml PO ACHS PRN PRN Reason: Acid indigestion Discontinued atenoloL 25 mg PO DAILY Discharge Medication List Fenofibrate,Micronized [Fenofibrate] 134 mg PO DAILY 08/01/23 [History] Mag Hydrox/Aluminum Hyd/Simeth [Mylanta Maximum Strength Liq] 10 - 20 ml PO ACHS PRN 08/01/23 [History] Multivitamins, Thera [Multivitamin (formulary)] 1 tab PO DAILY 08/01/23 [History] Trazodone (Unknown Dose) 1 tab PO HS PRN 08/01/23 [History] Vitamin B Complex 1 cap PO DAILY 08/01/23 [History] Metoprolol Succinate (ER) [Toprol Xl] 25 mg PO DAILY #30 tab 08/02/23 [Rx] chlordiazePOXIDE HCl [Librium] 25 mg PO QID 3 Days #12 capsule 08/02/23 [Rx] Follow up Appointment(s)/Referral(s): Talha Garg MD [Primary Care Provider] - 3 Days Discharge Disposition: HOME SELF-CARE
--- NOTE | 2023-08-02 07:09 | P.HPIM ---
History of Present Illness Patient is a 33-year-old pleasant male came in for alcohol withdrawals. Patient to stop drinking more than 2 days ago has been undergoing withdrawals. Although today he only received the 1 mg 1 time dose of Ativan so far since hosp italization. Patient withdraws significant improved. Patient is also depressed always has thoughts of doesn't want to live but doesn't have a plan for sweets side never attempted suicide. Patient does have history of hypertension and is on atenolol at home but his blood pressure is low normal patient is bit tachycardic at this time patient is receiving IV fluids denied any abdominal pain nausea vomiting patient drinks usually one fifth of alcohol on daily basis attempted to quit many times was unable to quit by himself. He does smoke marijuana occasionally REVIEW OF SYSTEMS: CONSTITUTIONAL: No fever, no malaise, no fatigue. HEENT: No recent visual problems or hearing problems. Denied any sore throat. CARDIOVASCULAR: No chest pain, orthopnea, PND, no palpitations, no syncope. PULMONARY: No shortness of breath, no cough, no hemoptysis. GASTROINTESTINAL: No diarrhea, no nausea, no vomiting, no abdominal pain. NEUROLOGICAL: No headaches, no weakness, no numbness. HEMATOLOGICAL: Denies any bleeding or petechiae. GENITOURINARY: Denies any burning micturition, frequency, or urgency. MUSCULOSKELETAL/RHEUMATOLOGICAL: Denies any joint pain, swelling, or any muscle pain. ENDOCRINE: Denies any polyuria or polydipsia. The rest of the 14-point review of systems is negative. PHYSICAL EXAMINATION: GENERAL: The patient is alert and oriented x3, not in any acute distress. Well developed, well nourished. HEENT: Pupils are round and equally reacting to light. EOMI. No scleral icterus. No conjunctival pallor. Normocephalic, atraumatic. No pharyngeal erythema. No thyromegaly. CARDIOVASCULAR: S1 and S2 present. No murmurs, rubs, or gallops. PULMONARY: Chest is clear to auscultation, no wheezing or crackles. ABDOMEN: Soft, nontender, nondistended, normoactive bowel sounds. No palpable organomegaly. MUSCULOSKELETAL: No joint swelling or deformity. EXTREMITIES: No cyanosis, clubbing, or pedal edema. NEUROLOGICAL: Gross neurological examination did not reveal any focal deficits. SKIN: No rashes. Assessment and plan -Alcohol withdrawals which improved patient will be monitored until later in the day when we and will be discharged on as needed Librium. As there is a concern about depression and trying to hurt himself patient will need clearance from psychiatry before can be discharged. -Alcohol abuse: Counseling was provided and the social work instructor will be consulted to provide him with the resources for cessation of alcohol -Tachycardia part of which is reflex tachycardia as he didn't receive his atenolol at this morning has patient's blood pressures his low switched to metoprolol -Hypertension presently hypotensive -Hyperlipidemia -Obesity Depression: Management as mentioned above -Acute alcoholic hepatitis expected to improve with cessation of alcohol -Hypervolemic hyponatremia improved with IV fluids Patient will be discharged today if cleared by psychiatry and after evaluation with social work Past Medical History Past Medical History: Hyperlipidemia, Hypertension Additional Past Medical History / Comment(s): Etoh abuse History of Any Multi-Drug Resistant Organisms: None Reported Past Surgical History: No Surgical Hx Reported Past Psychological History: Anxiety, Depression Smoking Status: Current every day smoker Past Alcohol Use History: Abuse, Daily, Heavy Additional Past Alcohol Use History / Comment(s): fith to fith and half Past Drug Use History: Marijuana Medications and Allergies Home Medications Medication Instructions Recorded Confirmed Type Fenofibrate,Micronized 134 mg PO DAILY 08/01/23 08/01/23 History [Fenofibrate] Mag Hydrox/Aluminum Hyd/Simeth 10 - 20 ml PO ACHS PRN 08/01/23 08/01/23 History [Mylanta Maximum Strength Liq] Multivitamins, Thera [Multivitamin 1 tab PO DAILY 08/01/23 08/01/23 History (formulary)] Trazodone (Unknown Dose) 1 tab PO HS PRN 08/01/23 08/01/23 History Vitamin B Complex 1 cap PO DAILY 08/01/23 08/01/23 History Metoprolol Succinate (ER) [Toprol 25 mg PO DAILY #30 tab 08/02/23 Rx Xl] chlordiazePOXIDE HCl [Librium] 25 mg PO QID 3 Days #12 capsule 08/02/23 Rx Allergies Allergy/AdvReac Type Severity Reaction Status Date / Time Penicillins Allergy Rash/Hives Verified 08/01/23 18:19 Physical Exam Vitals: Vital Signs Temp Pulse Pulse Resp BP BP Pulse Ox 08/02/23 04:14 98.0 F 106 H 20 111/84 98 08/01/23 21:45 98.1 F 103 H 16 135/93 96 08/01/23 21:27 92 18 138/94 98 08/01/23 09:47 97.7 F 70 20 129/94 99 Intake and Output 08/01/23 08/02/23 08/02/23 22:59 06:59 14:59 Other: # Voids 1 2 Weight 127.006 kg Results CBC & Chem 7: 08/02/23 04:41 08/02/23 04:41 Labs: Abnormal Lab Results - Last 24 Hours (Table) 08/01/23 08/01/23 08/01/23 Range/Units 15:51 15:51 15:51 Hgb 18.2 H (13.0-17.5) gm/dL MCV (80.0-100.0) fL Sodium (137-145) mmol/L Glucose (74-99) mg/dL Total Bilirubin (0.2-1.3) mg/dL AST (17-59) U/L ALT (4-49) U/L Urine Protein 1+ H (Negative) Urine Mucus Many H (None) /hpf U Marijuana (THC) Screen Detected H (NotDetected) 08/01/23 08/02/23 08/02/23 Range/Units 15:51 04:41 04:41 Hgb (13.0-17.5) gm/dL MCV 100.6 H (80.0-100.0) fL Sodium 134 L 135 L (137-145) mmol/L Glucose 107 H 101 H (74-99) mg/dL Total Bilirubin 1.4 H (0.2-1.3) mg/dL AST 228 H 258 H (17-59) U/L ALT 148 H 157 H (4-49) U/L Urine Protein (Negative) Urine Mucus (None) /hpf U Marijuana (THC) Screen (NotDetected) Thrombosis Risk Factor Assmnt - Choose All That Apply Any of the Below Risk Factors Present?: Yes Each Factor Represents 1 point: Obesity (BMI >25) Other Risk Factors: No Other congenital or acquired thrombophilia - If yes, enter type in comment: No Thrombosis Risk Factor Assessment Total Risk Factor Score: 1 Thrombosis Risk Factor Assessment Level: Low Risk
[2023-08-02] MEDS: METOPROLOL TARTRATE 25 MG TAB PO SCH ×2 (08:43→21:30)
[2023-08-02] MEDS: MULTIVITAMINS, THERA 1 EACH TAB PO SCH (08:43)
[2023-08-02] MEDS: FAMOTIDINE 20 MG TAB PO SCH ×2 (08:43→21:30)
[2023-08-02] MEDS: THIAMINE 100 MG TAB PO SCH (08:44)
[2023-08-02] MEDS: FOLIC ACID 1 MG TAB PO SCH (08:44)
[2023-08-02] MEDS: VENLAFAXINE HCL ER 37.5 MG CAP PO SCH (14:19)
[2023-08-02] MEDS: SODIUM CHLORIDE 0.9% 1,000 ML IV SCH ×2 (14:19→18:22)
[2023-08-02] MEDS: NICOTINE 21MG/24HR PATCH TRANSDERM SCH (14:23)
[2023-08-02] MEDS: LORazepam 1 MG TAB PO PRN (18:21)
[2023-08-02] MEDS: traZODone HCL 50 MG TAB PO SCH (21:30)
--- NOTE | 2023-08-02 23:32 | P.CN ---
Psychiatric Consult - . Consult date: 08/02/23 Consult:: History of Present Illness: The patient is a 33-year-old male with a past medical history of depression, alcohol use disorder, and hypertension who presented to the ED with worsening depression and suicidal ideation in the context of heavy alcohol drinking. The psychiatric team was consulted to evaluate the patient due to reported suicidal ideation. The patient was evaluated in his room on the medical floor. He reported that he came to the emergency department expecting to go to psychiatric treatment but was told that no beds were available in the psychiatric unit, and he may be transferred to another hospital. The patient endorsed that he came to the ER because he was feeling increasingly depressed and having suicidal thoughts in the context of heavy drinking, consuming "almost 1/5 daily." He mentioned losing his job and his inability to stop drinking alcohol. The patient reports that his depression started during his teenage years and may be related to feeling neglected or ignored by his mother, as she was always isolated. He had previously tried antidepressants, including Celexa and Zoloft, but did not experience any benefits from them. He also attempted different types of counseling, such as mental health therapy and substance use counseling, without any improvement in his depressive symptoms. The patient reported that his primary care physician prescribed Trazodone to help with insomnia. He described symptoms of depression, including a low mood, hopelessness, lack of motivation, very low self-esteem, constant fatigue, and occasional suicidal ideation. The patient noted a worsening of his depression and suicidal ideation over the past few days due to heavy drinking, as he has been consuming 1/5 of liquor daily for the past few weeks. He reported feeling unsafe at home, especially since he lives with his grandparents, who are also heavy drinkers. The patient mentioned very poor sleep, difficulty focusing, and a decreased appetite. The patient explained that he started heavy drinking about five years ago and escalated to excessive drinking over the past year, with an average of 1/5 daily, occasionally binge-drinking non-stop for two weeks. He attributed the main trigger for his drinking to his depression, as he tries to numb his emotions. The patient also reported severe anxiety with uncontrolled worry, inability to relax, and a constant feeling of unease. He denied current or previous symptoms of psychosis, hallucinations, paranoid ideation, or delusions. The patient denied current or previous symptoms of abdullahi, including periods of elevated mood, grandiosity, bursts of energy without the need for sleep, or impulsive/uninhibited behavior. The patient mentioned that he had an outburst of anger at his workplace a few days ago, which resulted in his job loss. Past Psychiatric History: The patient had one previous inpatient psychiatric hospitalization for about three days a few years ago. He denies a history of a suicidal attempt but mentioned a recent worsening of suicidal thoughts over the past few months. The patient reported previous inpatient rehab and outpatient substance use treatment about 7 to 10 times, with the last two occurring in the summer of this year. He is currently taking psychiatric medications, including Trazodone, prescribed by his primary care physician, and has had previous trials of Zoloft and Celexa. Medical History: hypertriglyceridemia, hypertension Substance Use History: The patient has a history of heavy alcohol drinking for the past five years and has a history of multiple inpatient rehab stays and substance use counseling. He occasionally smokes marijuana and smokes one pack of cigarettes daily for about 10 years. Family Psychiatric History: Both grandparents are heavy drinkers, with his grandfather consuming about three to five shots daily and his grandmother drinking one bottle of wine daily. His father suffered from alcoholism, as well as maternal uncles. He is unsure if there is any diagnosed mental illness in his family. He mentioned that his maternal aunt overdosed, but he is unsure if it was a suicide attempt. Social/Developmental History: The patient currently lives with his grandparents. He used to work at [employer] but lost his job recently. He completed high school and some college but has never and has no children. He was raised by both his parents and grandparents. He reports experiencing psychological trauma from incidents during kindergarten when he was yelled at by his teacher. He was also traumatized by watching his father almost during a camping trip. Mental Status Examination: Appearance: Appears stated age, disheveled, average body built, and no specific features. Gait/ posture: Steady gait, normal arm swinging, no abnormal movements, with relaxed posture. Attitude and Behavior: Engaged, cooperative, maintained eye contact during course of interview. Motor Activity: Normal psychomotor activity. Speech: Normal rate, rhythm, articulation, and prosody. None pressured. Mood: " depressed Affect: Constricted, appropriate to context and situation. Thought form: Goal directed, linear, and relevant, not incoherent and no clang association. Thought content: Logical, non-delusional, reports suicidal thoughts, Denies homicidal thoughts, intentions, or plans. Perception: Denies any auditory/ visual or tactile hallucinations. Attention: No impairment. Orientation: Oriented to time, place, person, and situation. Insight & Judgment: Limited Impulse control: Limited Assessment and Diagnosis: Major depressive disorder, severe without psychotic features Alcohol use disorder, severe Anxiety disorder, unspecified. Recommendation: Disposition/Follow-up: Is psychiatric hospitalization indicated? Yes Addressed and ensured patient's safety; patient does meet the criteria for psychiatric hospitalization. The patient is actively suicidal and has active thoughts to hurt himself and not feeling safe going back home. Please transfer the patient to inpatient psychiatric level of care after achieving medical stabilization. Place the patient on 1:1 observation for safety. Currently, there is no need for further follow-up by the psychiatric team. Medication management: Effexor XR 37.5 mg PO QD for depression and anxiety symptoms. Trazodone 50 mg PO HS for insomnia and depression Ativan 1 mg PO TID PRN for anxiety and ETOH withdrawal symptoms Brief supportive psychotherapy and psychoeducation were provided to the patient. Discussed the treatment plan with the requesting physician/service. Thank you for permitting me to assist in this patient's treatment. Please call the psychiatry department if you have any questions or need further help with this case. 08/02/23 23:25
[2023-08-03] MEDS: VENLAFAXINE HCL ER 37.5 MG CAP PO SCH (08:56)
[2023-08-03] MEDS: METOPROLOL TARTRATE 25 MG TAB PO SCH ×2 (08:56→20:59)
[2023-08-03] MEDS: FOLIC ACID 1 MG TAB PO SCH (08:56)
[2023-08-03] MEDS: THIAMINE 100 MG TAB PO SCH (08:56)
[2023-08-03] MEDS: MULTIVITAMINS, THERA 1 EACH TAB PO SCH (08:56)
[2023-08-03] MEDS: FAMOTIDINE 20 MG TAB PO SCH ×2 (08:56→20:59)
[2023-08-03] MEDS: NICOTINE 21MG/24HR PATCH TRANSDERM SCH ×2 (08:57→11:29)
[2023-08-03] MEDS: SODIUM CHLORIDE 0.9% 1,000 ML IV SCH (08:59)
[2023-08-03 09:15] VITALS: RESP 16
--- NOTE | 2023-08-03 13:45 | P.PN ---
Subjective Patient is a 33-year-old pleasant male came in for alcohol withdrawals. Patient to stop drinking more than 2 days ago has been undergoing withdrawals. Although today he only received the 1 mg 1 time dose of Ativan so far since hospitalization. Patient withdraws significant improved. Patient is also depressed always has thoughts of doesn't want to live but doesn't have a plan for sweets side never attempted suicide. Patient does have history of hypertension and is on atenolol at home but his blood pressure is low normal patient is bit tachycardic at this time patient is receiving IV fluids denied any abdominal pain nausea vomiting patient drinks usually one fifth of alcohol on daily basis attempted to quit many times was unable to quit by himself. He does smoke marijuana occasionally 08/03/2023 Patient doesn't have any withdrawals anymore and not requiring Ativan patient is feeling well psychiatry evaluated the patient is recommending transfer to inpatient psychiatric floor in waiting for bed. Constitutional: Denied any fatigue denied any fever. Cardio vascular: denied any chest pain, palpitations Gastrointestinal denied any nausea vomiting Pulmonary: Denied any shortness of breath cough Neurologic denied any new focal deficits All inpatient medications were reviewed and appropriate changes in these medications as dictated in the interval history and assessment and plan. PHYSICAL EXAMINATION: GENERAL: The patient is alert and oriented x3, not in any acute distress. Well developed, well nourished. HEENT: Pupils are round and equally reacting to light. EOMI. No scleral icterus. No conjunctival pallor. Normocephalic, atraumatic. No pharyngeal erythema. No thyromegaly. CARDIOVASCULAR: S1 and S2 present. No murmurs, rubs, or gallops. PULMONARY: Chest is clear to auscultation, no wheezing or crackles. ABDOMEN: Soft, nontender, nondistended, normoactive bowel sounds. No palpable organomegaly. MUSCULOSKELETAL: No joint swelling or deformity. EXTREMITIES: No cyanosis, clubbing, or pedal edema. NEUROLOGICAL: Gross neurological examination did not reveal any focal deficits. SKIN: No rashes. Assessment and plan -Alcohol withdrawals which improved patient not requiring any Ativan or Librium patient is medically stable to be discharged to psychiatric floor -Alcohol abuse: Counseling was provided and the social media senior associate will be consulted to provide him with the resources for cessation of alcohol -Tachycardia improved with metoprolol -Hypertension blood pressure well controlled at this time -Hyperlipidemia -Obesity Depression and suicidal ideation: Psychiatry valid the patient recommending inpatient psychiatric floor -Acute alcoholic hepatitis expected to improve with cessation of alcohol -Hypervolemic hyponatremia improved with IV fluids Patient will be discharged today if cleared by psychiatry and after evaluation with social work Objective - Vital Signs Vital signs: Vital Signs Temp 97.6 F 08/03/23 07:00 Pulse 101 H 08/03/23 07:00 Resp 16 08/03/23 07:00 BP 137/97 08/03/23 07:00 Pulse Ox 97 08/03/23 07:00 FiO2 Intake & Output 08/02/23 08/03/23 08/03/23 19:59 06:59 18:59 Intake Total 240 Balance 240 Intake: Oral 240 Other: # Voids - Labs CBC & Chem 7: 08/02/23 04:41 08/02/23 04:41
[2023-08-03] MEDS: traZODone HCL 50 MG TAB PO SCH (20:59)
[2023-08-03] MEDS: LORazepam 1 MG TAB PO PRN (21:03)
[2023-08-04 08:35] VITALS: BP 128/92; PULSE 104; TEMP 97.9
[2023-08-04] MEDS: MULTIVITAMINS, THERA 1 EACH TAB PO SCH (08:56)
[2023-08-04] MEDS: VENLAFAXINE HCL ER 37.5 MG CAP PO SCH (08:56)
[2023-08-04] MEDS: THIAMINE 100 MG TAB PO SCH (08:56)
[2023-08-04] MEDS: FAMOTIDINE 20 MG TAB PO SCH (08:56)
[2023-08-04] MEDS: FOLIC ACID 1 MG TAB PO SCH (08:56)
[2023-08-04] MEDS: NICOTINE 21MG/24HR PATCH TRANSDERM SCH (08:56)
[2023-08-04] MEDS: METOPROLOL TARTRATE 25 MG TAB PO SCH (08:56)
[2023-08-04] MEDS ORDERED: NICOTINE GUM (POLACRILEX) 2 MG GUM BUCCAL PRN (10:21)
--- NOTE | 2023-08-04 14:20 | P.DS ---
Providers Date of admission: 08/01/23 20:37 Expected date of discharge: 08/04/23 Attending physician: Jose De Jesus Aleman Consults: 08/01/23 20:37 Consult Physician Routine Consulting Provider: Austyn Benavides Consult Reason/Comments: suicidal Do you want consulting provider notified?: Yes Primary care physician: Talha Garg Hospital Course: Final diagnosis -Alcohol withdrawals, improved -Alcohol abuse: Counseling was provided -Tachycardia, reflex tachycardia -Hypertension, presently hypotensive -Hyperlipidemia -Morbid Obesity with a BMI of 40.2 -Depression with suicidal ideation -Acute alcoholic hepatitis, improving -Hypovolemic hyponatremia, improved -GI prophylaxis -DVT prophylaxis -Full code Discharge disposition Patient is being transferred in a stable condition with guarded prognosis to 3 [facility] inpatient psychiatric unit, voluntarily . Patient will follow-up with Dr. Garg in the outpatient setting upon discharge. Patient is to follow with [facility] outpatient. Total time taken is greater than 35 minutes. Hospital course This is a 33-year-old male who was recently admitted with alcohol abuse with acute alcohol withdrawals maintained on CIWA protocol. Patient seen and evaluated by psychiatry stating he is meeting criteria for inpatient admission and patient is agreeable. Patient to sign voluntarily to continue psychiatric treatment and evaluation and medication adjustments on 3 [address]. Awaiting EPS nursed for evaluation. Patient reports having thoughts of suicidal ideation with no plan and no intent to harm and reports feeling overly depressed and using alcohol in attempt to get through his problems and does not want to continue. Patient this morning on exam was agreeable to inpatient psychiatric unit for further psychiatric care. Patient is medically stable and awaiting a bed on 3 W. Currently no reports of chest pain, shortness of breath, or palpitations. Patient is afebrile. No reports of nausea or vomiting and patient is tolerating diet. Patient will be going to 3 W. if a bed is available today. Physical exam: Gen: This is a 33-year-old male who is awake, alert and oriented 3, well- developed, well-nourished, morbidly obese HEENT: Head is atraumatic, normocephalic. Pupils equal, round. Sclerae is anicteric. NECK: Supple. No JVD. No lymphadenopathy. No thyromegaly. LUNGS: Clear to auscultation. No wheezes or rhonchi. No intercostal retractions. HEART: Regular rate and rhythm. No murmur. ABDOMEN: Soft. Obese. Bowel sounds are present. No masses. No tenderness. EXTREMITIES: No pedal edema. No calf tenderness. NEUROLOGICAL: Patient is awake, alert and oriented x3. Cranial nerves 2 through 12 are grossly intact. Please refer to medication reconciliation sheet for a list of medications. The impression and plan of care has been dictated by Raisa Bertrand, Nurse Practitioner as directed. Dr. Jose MD I have performed a history and examination and MDM of this patient, discussed the same with the dictator, and agree with the dictator's assessment and plan as written ,documented as a scribe. Based on total visit time, I have performed more than 50% of the visit. Patient Condition at Discharge: Fair Plan - Discharge Summary New Discharge Prescriptions: New LORazepam [Ativan] 1 mg PO Q12HR PRN tab PRN Reason: Anxiety Venlafaxine HCl ER [Effexor XR] 37.5 mg PO DAILY cap Famotidine [Pepcid] 20 mg PO BID tab Metoprolol Succinate (ER) [Toprol Xl] 25 mg PO DAILY #30 tab Folic Acid 1 mg PO DAILY tab Nicotine 21Mg/24Hr Patch [Habitrol] 1 patch TRANSDERM DAILY patch Nicotine Gum (Polacrilex) [Nicorette] 2 mg BUCCAL Q2HR PRN pieceofgum PRN Reason: Nicotine Cravings Continue Multivitamins, Thera [Multivitamin (formulary)] 1 tab PO DAILY Fenofibrate,Micronized [Fenofibrate] 134 mg PO DAILY Vitamin B Complex 1 cap PO DAILY Mag Hydrox/Aluminum Hyd/Simeth [Mylanta Maximum Strength Liq] 10 - 20 ml PO ACHS PRN PRN Reason: Acid indigestion traZODone HCL [Desyrel] 50 mg PO HS PRN PRN Reason: Insomnia Discontinued atenoloL 25 mg PO DAILY Discharge Medication List Fenofibrate,Micronized [Fenofibrate] 134 mg PO DAILY 08/01/23 [History] Mag Hydrox/Aluminum Hyd/Simeth [Mylanta Maximum Strength Liq] 10 - 20 ml PO ACHS PRN 08/01/23 [History] Multivitamins, Thera [Multivitamin (formulary)] 1 tab PO DAILY 08/01/23 [History] Vitamin B Complex 1 cap PO DAILY 08/01/23 [History] Metoprolol Succinate (ER) [Toprol Xl] 25 mg PO DAILY #30 tab 08/02/23 [Rx] traZODone HCL [Desyrel] 50 mg PO HS PRN 08/02/23 [History] Famotidine [Pepcid] 20 mg PO BID tab 08/04/23 [Rx] Folic Acid 1 mg PO DAILY tab 08/04/23 [Rx] LORazepam [Ativan] 1 mg PO Q12HR PRN tab 08/04/23 [Rx] Nicotine 21Mg/24Hr Patch [Habitrol] 1 patch TRANSDERM DAILY patch 08/04/23 [Rx] Nicotine Gum (Polacrilex) [Nicorette] 2 mg BUCCAL Q2HR PRN pieceofgum 08/04/23 [Rx] Venlafaxine HCl ER [Effexor XR] 37.5 mg PO DAILY cap 08/04/23 [Rx] Follow up Appointment(s)/Referral(s): Talha Garg MD [Primary Care Provider] - 3 Days Activity/Diet/Wound Care/Special Instructions: Patient is medically stable for transfer to psych unit for further evaluation and will be signing voluntarily Discharge Disposition: TRANSFER TO PSYCH HOSP/UNIT
== END 2023-08-04 15:58 ==
LOC: EC 09:44 → 6NMEDSUR 20:37
PROVIDERS: ADMIT Hospitalist; ATTEND Hospitalist
DX: F32.2 Major depressive disorder, single episode, severe without psychotic features (principal); F10.239 Alcohol dependence with withdrawal, unspecified; K70.10 Alcoholic hepatitis without ascites; R45.851 Suicidal ideations; F41.9 Anxiety disorder, unspecified; I10 Essential (primary) hypertension; R00.0 Tachycardia, unspecified; E78.5 Hyperlipidemia, unspecified; E87.1 Hypo-osmolality and hyponatremia; E66.01 Morbid (severe) obesity due to excess calories; F17.210 Nicotine dependence, cigarettes, uncomplicated; Z20.822 Contact with and (suspected) exposure to COVID-19; Z68.41 Body mass index [BMI] 40.0-44.9, adult; Z79.899 Other long term (current) drug therapy; Z88.0 Allergy status to penicillin
CPT/HCPCS: 96361 ×2; 96374; 82075; 99285; 36415; 80053 ×2; 83735; 84100; 85025; 85027; 81001; 80306; 87635; G0378 ×4; S4990 ×3; J2060

== ENCOUNTER 2023-08-04 15:31 | Inpatient (IN) | payer MEDICAID ==
[2023-08-04] MEDS ORDERED: NICOTINE GUM (POLACRILEX) 2 MG GUM BUCCAL PRN (15:32)
[2023-08-04] MEDS ORDERED: MAGNESIUM HYDROXIDE 2,400 MG/30 ML CUP PO PRN (15:42)
[2023-08-04] MEDS ORDERED: MAG HYDROX/AL HYDROX/SIMETH 30 ML CUP PO PRN (15:42)
[2023-08-04] MEDS ORDERED: LORazepam 1 MG TAB PO PRN ×3 (15:42)
[2023-08-04] MEDS ORDERED: IBUPROFEN 600 MG TAB PO PRN (15:42)
[2023-08-04] MEDS ORDERED: LORazepam 2 MG/ML INJ IM PRN (15:42)
[2023-08-04] MEDS: FAMOTIDINE 20 MG TAB PO SCH (20:41)
[2023-08-04] MEDS: traZODone HCL 50 MG TAB PO SCH (20:41)
[2023-08-04] MEDS: METOPROLOL TARTRATE 25 MG TAB PO SCH (20:41)
[2023-08-05] MEDS: MULTIVITAMINS, THERA 1 EACH TAB PO SCH (08:26)
[2023-08-05] MEDS: NICOTINE 21MG/24HR PATCH TRANSDERM SCH (08:26)
[2023-08-05] MEDS: METOPROLOL TARTRATE 25 MG TAB PO SCH ×2 (08:27→20:57)
[2023-08-05] MEDS: FAMOTIDINE 20 MG TAB PO SCH ×2 (08:27→20:57)
[2023-08-05] MEDS: FOLIC ACID 1 MG TAB PO SCH (08:27)
[2023-08-05] MEDS ORDERED: NON FORMULARY DRUG (Vitamin B Complex [Vitamin B Complex] 1 EACH Capsule) PO SCH (09:00)
[2023-08-05] MEDS ORDERED: VENLAFAXINE HCL ER 37.5 MG CAP PO SCH (09:00)
[2023-08-05] MEDS ORDERED: FENOFIBRATE 160 MG TAB PO SCH (09:00)
[2023-08-05] MEDS: ACETAMINOPHEN TAB 325 MG TAB PO PRN (09:21)
[2023-08-05] MEDS: LITHIUM CARBONATE 300 MG CAP PO SCH (15:15)
--- NOTE | 2023-08-05 15:25 | P.HP ---
Psychiatric H&P - . H&P Date: 08/05/23 History & Physical: Allergies Allergy/AdvReac Type Severity Reaction Status Date / Time Penicillins Allergy Rash/Hives Verified 08/01/23 18:19 Vital Signs Temp 97.4 F L 08/05/23 08:29 Pulse 102 H 08/05/23 09:22 Resp 16 08/05/23 08:29 BP 144/90 08/05/23 09:22 Pulse Ox 95 08/05/23 08:29 FiO2 Intake & Output 08/04/23 08/05/23 08/05/23 18:59 06:59 18:59 Weight 125.418 kg 08/05/23 15:06 Identifying Data: Patient is a 33 yo male, currently lives with his grandparents in a house, unemployed, single, no kids. History of Present Illness: According to consultation note documented by Dr Chaves "The patient is a 33-year-old male with a past medical history of depression, alcohol use disorder, and hypertension who presented to the ED with worsening depression and suicidal ideation in the context of heavy alcohol drinking. The psychiatric team was consulted to evaluate the patient due to reported suicidal ideation. The patient was evaluated in his room on the medical floor. He reported that he came to the emergency department expecting to go to psychiatric treatment but was told that no beds were available in the psychiatric unit, and he may be transferred to another hospital. The patient endorsed that he came to the ER because he was feeling increasingly depressed and having suicidal thoughts in the context of heavy drinking, consuming "almost 1/5 daily." He mentioned losing his job and his inability to stop drinking alcohol. The patient reports that his depression started during his teenage years and may be related to feeling neglected or ignored by his mother, as she was always isolated. He had previously tried antidepressants, including Celexa and Zoloft, but did not experience any benefits from them. He also attempted different types of counseling, such as mental health therapy and substance use counseling, without any improvement in his depressive symptoms. The patient reported that his primary care physician prescribed Trazodone to help with insomnia. He described symptoms of depression, including a low mood, hopelessness, lack of motivation, very low self-esteem, constant fatigue, and occasional suicidal ideation. The patient noted a worsening of his depression and suicidal ideation over the past few days due to heavy drinking, as he has been consuming 1/5 of liquor daily for the past few weeks. He reported feeling unsafe at home, especially since he lives with his grandparents, who are also heavy drinkers. The patient mentioned very poor sleep, difficulty focusing, and a decreased appetite. The patient explained that he started heavy drinking about five years ago and escalated to excessive drinking over the past year, with an average of 1/5 daily, occasionally binge-drinking non-stop for two weeks. He attributed the main trigger for his drinking to his depression, as he tries to numb his emotions. The patient also reported severe anxiety with uncontrolled worry, inability to relax, and a constant feeling of unease. He denied current or previous symptoms of psychosis, hallucinations, paranoid ideation, or delusions. The patient denied current or previous symptoms of abdullahi, including periods of elevated mood, grandiosity, bursts of energy without the need for sleep, or impulsive/uninhibited behavior. The patient mentioned that he had an outburst of anger at his workplace a few days ago, which resulted in his job loss." patient was seen today for psych assessment and admission today by verse writer. he corroborated the information given previously, spoke about the increased etoh and the issues at work where he was impulsive, aggressive. he also spoke about depression, anxiety. he claims that he was feeling suicidal before coming in the hospital however claims that this has improved. Claimed that he was having increasing work stress, more work load, spoke about binge drinking alcohol for the past 2-3 years. States that he was drinking about a fifth of vodka a day, he claims that he withdrew from the alcohol on his own for 5 or 6 days at home before coming to the hospital. States that he does not have a history of DTs or withdrawal seizures. He states that he is sleeping about 6-8 hours of sleep with trazodone on board, claims that his appetite is fair. States that his mood has been improving since being on the mental health unit. At this time he is denying any current suicidal or homicidal ideations intent or plan. Denied any auditory or visual hallucinations. The rest of the social history was taken from and corroborated with patient on DR Ramsay note. Past Psychiatric History: The patient had one previous inpatient psychiatric hospitalization for about three days a few years ago. He denies a history of a suicidal attempt but mentioned a recent worsening of suicidal thoughts over the past few months. The patient reported previous inpatient rehab and outpatient substance use treatment about 7 to 10 times, with the last two occurring in the summer of this year. He is currently taking psychiatric medications, including Trazodone and Effexor, prescribed by his primary care physician, and has had previous trials of Zoloft and Celexa. Medical History: hypertriglyceridemia, hypertension Substance Use History: The patient has a history of heavy alcohol drinking for the past five years and has a history of multiple inpatient rehab stays and substance use counseling. He occasionally smokes marijuana and smokes one pack of cigarettes daily for about 10 years. Family Psychiatric History: Both grandparents are heavy drinkers, with his grandfather consuming about three to five shots daily and his grandmother drinking one bottle of wine daily. His father suffered from alcoholism, as well as maternal uncles. He is unsure if there is any diagnosed mental illness in his family. He mentioned that his maternal aunt overdosed, but he is unsure if it was a suicide attempt. Social/Developmental History: The patient currently lives with his grandparents. He used to work at [employer] but lost his job recently. He completed high school and some college but has never and has no children. He was raised by both his parents and grandparents. He reports experiencing psychological trauma from incidents during kindergarten when he was yelled at by his teacher. He was also traumatized by watching his father almost during a camping trip. Mental Status Examination: Appearance: Appears stated age, improving hygiene and grooming, average body built, and no specific features. Attitude and Behavior: Engaged, cooperative, maintained eye contact during course of interview. Motor Activity: Normal psychomotor activity. Speech: Normal rate, rhythm, articulation, and prosody. None pressured. Mood: " depressed but better Affect: Constricted, appropriate to context and situation. Thought form: Goal directed, linear, and relevant, not incoherent and no clang association. Thought content: Logical, non-delusional, reports suicidal thoughts, Denies homicidal thoughts, intentions, or plans. Perception: Denies any auditory/ visual or tactile hallucinations. Attention: No impairment. Orientation: Oriented to time, place, person, and situation. Insight & Judgment: Improving Impulse control: Improving Assessment: Major depressive disorder, severe without psychotic features Alcohol use disorder, severe Anxiety disorder, unspecified Cannabis use disorder Nicotine dependence STRENGTHS/WEAKNESSES: strength is that patient is resilient. Weakness is that patient has poor judgment and is impulsive INTELLECT: average PLAN: -Patient is admitted under voluntary status to MHU for stabilization of psychiatric symptoms and safety. Patient has signed adult voluntary form and medication consent and is placed in patient's chart. -Medications : Increase Effexor XR 75 mg daily for mood/anxiety. Trazodone 50 mg daily at bedtime for insomnia/mood. We'll speak with patient about starting naltrexone for anti-craving. Added lithium 300 mg daily for mood adjunct -Ativan and Haldol PRN for agitation/aggression -CIWA discontinued due to patient being off alcohol for about a week's time now. -Patient was counselled on substance abuse and desired to cut back on use, we'll speak with patient tomorrow about substance use rehab. -Patient was informed of the risks, benefits and side effects of the medication and patient verbally consented to taking the medications. Patient signed med consent form and was placed in chart. -Internal Medicine consult to perform medical evaluation and physical. -NRT - nicotine patch -SW on board for discharge planning. Encourage patient to participate in groups to work on coping skills.
--- NOTE | 2023-08-05 16:16 | P.CONS ---
History of Present Illness - Reason for Consult Consult date: 08/05/23 Medical management Requesting physician: James Oropeza - Chief Complaint Depression - History of Present Illness This 33-year-old patient was initially presented to the hospital on August 01. To the ER. Feeling suicidal. He was withdrawing from alcohol. She has stopped drinking 2 days prior to that. Was put on the CIWA scale. Patient recently had a meltdown at his job and also was laid off. He normally was drinking one fifth of alcohol on a daily basis. Has attempted to stop alcohol many times. Subsequently was discharged on August 04 to the 3 W. psychiatry unit after being seen by psychiatrist. Patient's depression is a shade better. Eating well. Had a bowel movement. Currently no withdrawal symptoms. He slept better. Review of systems: GEN.: None EYES: None HEENT: None NECK: None RESPIRATORY: None CARDIOVASCULAR: None GASTROINTESTINAL: Reflux GENITOURINARY: None MUSCULOSKELETAL: None LYMPHATICS: None HEMATOLOGICAL: None PSYCHIATRY: Depressed NEUROLOGICAL: None Past medical history to include: Essential hypertension, hyperlipidemia, GERD, alcohol use disorder, anxiety depression. Social history: Was living with his grandparents. Laid off from his job because of alcohol. Was drinking a fifth or more alcohol. Smoker. Also did marijuana. Physical examination: VITAL SIGNS: 97.4, 102, 16, 140/90, 95% room air GENERAL: BMI 39.7, sitting up awake but a distress. EYES: Pupils equal. Conjunctiva normal. HEENT: External appearance of nose and ears normal, oral cavity grossly normal. NECK: JVD not raised; masses not palpable. HEART: First and second heart sounds are normal; no edema. LUNGS: Respiratory rate normal; clear to auscultation. ABDOMEN: Soft, nontender, liver spleen not palpable, no masses palpable. PSYCH: Alert and oriented x3; mood and affect some anxietyl. MUSCULOSKELETAL:No Clubbing/cyanosis;muscles-grossly intact NEUROLOGICAL: Cranial nerves grossly intact; no facial asymmetry, power and sensation grossly intact. LYMPHATICS: No lymph nodes palpable in the axilla and neck INVESTIGATIONS, reviewed in the clinical context: August 02: White count 5.7 hemoglobin 15.7 platelets 182 sodium 135 potassium 4.4 BUN 14 creatinine 1.05 AST 258 ALT 157 Urine drug screen positive for marijuana COVID-19 PCR: Not detected Assessment and plan: -Alcohol use disorder Thiamine 100 mg a day. -Chronic Coumadin dependence, cigarette smoker Nicotine patch 21 -Recreational marijuana use -Obesity BMI 39.7 Consult dietitian for weight loss measures -Alcoholic hepatitis Liver ultrasound follow by Dr. Sussy Lane outpatient -GERD Pepcid -Major depressive disorder, severe without psychotic features. Anxiety disorder unspecified Being followed by psychiatry [place], Ativan when necessary, trazodone, Effexor XR Care was discussed with the patient. Questions answered. Thank you Dr. Oropeza Past Medical History Past Medical History: Hyperlipidemia, Hypertension Additional Past Medical History / Comment(s): Etoh abuse History of Any Multi-Drug Resistant Organisms: None Reported Past Surgical History: No Surgical Hx Reported Past Psychological History: Anxiety, Depression Smoking Status: Current every day smoker Past Alcohol Use History: Abuse, Daily, Heavy Additional Past Alcohol Use History / Comment(s): fith to fith and half Past Drug Use History: Marijuana Medications and Allergies Home Medications Medication Instructions Recorded Confirmed Type Fenofibrate,Micronized 134 mg PO DAILY 08/01/23 08/04/23 History [Fenofibrate] Mag Hydrox/Aluminum Hyd/Simeth 10 - 20 ml PO ACHS PRN 08/01/23 08/04/23 History [Mylanta Maximum Strength Liq] Multivitamins, Thera [Multivitamin 1 tab PO DAILY 08/01/23 08/04/23 History (formulary)] Vitamin B Complex 1 cap PO DAILY 08/01/23 08/04/23 History Metoprolol Succinate (ER) [Toprol 25 mg PO DAILY #30 tab 08/02/23 08/04/23 Rx Xl] traZODone HCL [Desyrel] 50 mg PO HS PRN 08/02/23 08/04/23 History Famotidine [Pepcid] 20 mg PO BID tab 08/04/23 08/04/23 Rx Folic Acid 1 mg PO DAILY tab 08/04/23 08/04/23 Rx LORazepam [Ativan] 1 mg PO Q12HR PRN tab 08/04/23 08/04/23 Rx Nicotine 21Mg/24Hr Patch [Habitrol] 1 patch TRANSDERM DAILY patch 08/04/23 08/04/23 Rx Nicotine Gum (Polacrilex) 2 mg BUCCAL Q2HR PRN pieceofgum 08/04/23 08/04/23 Rx [Nicorette] Venlafaxine HCl ER [Effexor XR] 37.5 mg PO DAILY cap 08/04/23 08/04/23 Rx Allergies Allergy/AdvReac Type Severity Reaction Status Date / Time Penicillins Allergy Rash/Hives Verified 08/01/23 18:19 Physical Exam Vitals: Vital Signs Temp Pulse Resp BP Pulse Ox 08/05/23 09:22 102 H 144/90 08/05/23 08:29 97.4 F L 111 H 16 155/105 95 08/04/23 16:31 96.8 F L 113 H 20 147/91 97 Intake and Output 08/04/23 08/05/23 08/05/23 22:59 06:59 14:59 Other: Weight 125.418 kg
[2023-08-05] MEDS: traZODone HCL 50 MG TAB PO SCH (20:57)
[2023-08-06] MEDS: NICOTINE 21MG/24HR PATCH TRANSDERM SCH (08:38)
[2023-08-06] MEDS: METOPROLOL TARTRATE 25 MG TAB PO SCH ×2 (08:39→21:12)
[2023-08-06] MEDS: FAMOTIDINE 20 MG TAB PO SCH ×2 (08:39→21:12)
[2023-08-06] MEDS: LITHIUM CARBONATE 300 MG CAP PO SCH (08:39)
[2023-08-06] MEDS: MULTIVITAMINS, THERA 1 EACH TAB PO SCH (08:39)
[2023-08-06] MEDS: FOLIC ACID 1 MG TAB PO SCH (08:39)
[2023-08-06] MEDS: VENLAFAXINE HCL ER 75 MG CAP PO SCH (08:40)
--- NOTE | 2023-08-06 10:11 | US ---
EXAMINATION TYPE: US abdomen limited DATE OF EXAM: 08/06/2023 COMPARISON: NONE CLINICAL INDICATION: Male, 33 years old with history of Alcohol,history. Elevated liver enzymes; steve vated liver enzymes TECHNIQUE: Multiple sonographic images of the right upper quadrant are obtained. FINDINGS: EXAM MEASUREMENTS: Liver Length: 18.2 cm Gallbladder Wall: .3 cm CBD: .4 cm Right Kidney: 12.6 x 5.2 x 5.2 cm TEST DIRECTOR NOTES: Pancreas: Obscured by bowel gas Liver: Increased attenuation Gallbladder: No stones seen Evidence for sonographic Ventura's sign: No CBD: wnl Right Kidney: No hydronephrosis or masses seen IMPRESSION: 1. Nonspecific pattern of the liver can be seen with hepatic steatosis or hepatocellular disease incl uding hepatitis correlate clinically. 2. Mild hepatomegaly
--- NOTE | 2023-08-06 10:29 | P.PN ---
Progress Note - Text Progress Note Date: 08/06/23 Interval history: Patient was seen today for psychiatric follow up. Patient states that he feels he is doing a bit better today with regards to his depression and anxiety. He states that he was able to sleep about 4 or 5 hours last night, he was requesting increase in his trazodone. We reviewed the results of his ultrasound which was done yesterday and the importance of alcohol cessation, patient was agreeable to this however somewhat superficial. We also spoke about rehab and anti-craving medications and patient states that he is tried both in the past and has failed. He claims that "I can work on my sobriety myself". He claims that he is going to some groups and trying to participate as best as he can. He was fairly focused on discharge. At this time is denying any auditory or visual hallucination. Denying suicidal or homicidal ideations intent or plan. She has been taking his medications not reporting any side effects today. mental Status examination: Appearance: Appears stated age, improving hygiene and grooming, average body built, and no specific features. Attitude and Behavior: Engaged, cooperative, maintained eye contact during course of interview. Motor Activity: Normal psychomotor activity. Speech: Normal rate, rhythm, articulation, and prosody. None pressured. Mood: " depressed but better improving Affect: improving mildly, appropriate to context and situation. Thought form: Logical, non-delusional, goal oriented. minimizing need for hospitalization. Perception: Denies any auditory/ visual or tactile hallucinations. Orientation: Oriented to time, place, person, and situation. Insight & Judgment: Improving Impulse control: Improving Assessment: Major depressive disorder, severe without psychotic features Alcohol use disorder, severe Anxiety disorder, unspecified Cannabis use disorder Nicotine dependence PLAN: -Patient is admitted under voluntary status to MHU for stabilization of psychiatric symptoms and safety. Patient has signed adult voluntary form and medication consent and is placed in patient's chart. -Medications : continue Effexor XR 75 mg daily for mood/anxiety. increase Trazodone 100 mg daily at bedtime for insomnia/mood. continue lithium 300 mg daily for mood adjunct -Ativan and Haldol PRN for agitation/aggression -abdominal U/S completed on 08/05 - showed mild hepatomegaly, nonspecific pattern possibly hepatic steatosis or hepatocellular disease. -NRT - nicotine patch -SW on board for discharge planning. Encourage patient to participate in groups to work on coping skills. patient is refusing rehab at this time. Patient is also declining anti cravings medications. likely discharge in 1-2 days back home.
[2023-08-06 13:32] LABS: ALT 315 U/L (4-49); AST 217 U/L (17-59); African American GFR (CKD) >90 (>60 ml/min/1.73 sqM); Albumin 4.7 g/dL (3.5-5.0); Alkaline Phosphatase 61 U/L (38-126); Anion Gap 11 mmol/L; Blood Urea Nitrogen 13 mg/dL (9-20); Calcium 9.9 mg/dL (8.4-10.2); Carbon Dioxide 22 mmol/L (22-30); Chloride 105 mmol/L (98-107); Glucose 85 mg/dL (74-99); Non-African American GFR(CKD) >90 (>60 ml/min/1.73 sqM); Potassium 4.5 mmol/L (3.5-5.1); Sodium 138 mmol/L (137-145); Total Bilirubin 0.8 mg/dL (0.2-1.3)
[2023-08-06 15:16] VITALS: BMI 39.6
--- NOTE | 2023-08-06 19:42 | P.PN ---
Progress Note - Text Progress Note Date: 08/06/23 - Chief Complaint Depression - History of Present Illness This 33-year-old patient was initially presented to the hospital on August 01. To the ER. Feeling suicidal. He was withdrawing from alcohol. She has stopped drinking 2 days prior to that. Was put on the CIWA scale. Patient recently had a meltdown at his job and also was laid off. He normally was drinking one fifth of alcohol on a daily basis. Has attempted to stop alcohol many times. Subsequently was discharged on August 04 to the 3 W psychiatry unit after being seen by psychiatrist. Patient's depression is a shade better. Eating well. Had a bowel movement. Currently no withdrawal symptoms. He slept better. August 06: Ambulate in the hallway. Feels a bit better. Did tolerate his diet. Abdominal ultrasound suggestive of possibly hepatic steatosis. Labs the patient follow up with Dr. Sussy Lane outpatient. Discussed with patient about alcohol cessation again. Fenofibrate was discontinued because of elevated liver enzymes. Because of his current medication should have his liver function checked every month. Active Medications Acetaminophen (Acetaminophen Tab 325 Mg Tab) 650 mg PO Q4HR PRN PRN Reason: Mild Pain (Scale 1 to 3) Last Admin: 08/05/23 09:21 Dose: 650 mg Al Hydroxide/Mg Hydroxide (Mag Hydrox/Al Hydrox/Simeth 30 Ml Cup) 30 ml PO Q4HR PRN PRN Reason: GI Upset Famotidine (Famotidine 20 Mg Tab) 20 mg PO BID [facility] Last Admin: 08/06/23 08:39 Dose: 20 mg Folic Acid (Folic Acid 1 Mg Tab) 1 mg PO DAILY [facility] Last Admin: 08/06/23 08:39 Dose: 1 mg Ibuprofen (Ibuprofen 600 Mg Tab) 600 mg PO Q6HR PRN PRN Reason: Moderate Pain (Scale 4 to 6) [place] Carbonate ([place] Carbonate 300 Mg Cap) 300 mg PO DAILY [facility] Last Admin: 08/06/23 08:39 Dose: 300 mg Lorazepam (Lorazepam 1 Mg Tab) 1 mg PO Q6HR PRN PRN Reason: Agitation or Acute Anxiety Lorazepam (Lorazepam 2 Mg/Ml Inj) 1 mg IM Q6HR PRN PRN Reason: Agitation or Acute Anxiety Magnesium Hydroxide (Magnesium Hydroxide 2,400 Mg/30 Ml Cup) 2,400 mg PO DAILY PRN PRN Reason: Constipation Metoprolol Tartrate (Metoprolol Tartrate 25 Mg Tab) 25 mg PO BID [facility] Last Admin: 08/06/23 08:39 Dose: 25 mg Multivitamins (Multivitamins, Thera 1 Each Tab) 1 each PO DAILY [facility] Last Admin: 08/06/23 08:39 Dose: 1 each Nicotine (Nicotine 21mg/24hr Patch) 1 patch TRANSDERM DAILY [facility] Last Admin: 08/06/23 08:38 Dose: 1 patch Nicotine Polacrilex (Nicotine Gum (Polacrilex) 2 Mg Gum) 2 mg BUCCAL Q2HR PRN PRN Reason: Nicotine Cravings Trazodone HCl (Trazodone Hcl 100 Mg Tab) 100 mg PO HS VAL Venlafaxine HCl (Venlafaxine Hcl Er 75 Mg Cap) 75 mg PO DAILY [facility] Last Admin: 08/06/23 08:40 Dose: 75 mg Past medical history to include: Essential hypertension, hyperlipidemia, GERD, alcohol use disorder, anxiety depression. Social history: Was living with his grandparents. Laid off from his job because of alcohol. Was drinking a fifth or more alcohol. Smoker. Also did marijuana. Physical examination: VITAL SIGNS: 98, 106, 16, 120/70, 95% room air GENERAL: Up in chair, comfortable EYES: Pupils equal. Conjunctiva normal. HEENT: External appearance of nose and ears normal, oral cavity grossly normal. NECK: JVD not raised; masses not palpable. HEART: First and second heart sounds are normal; no edema. LUNGS: Respiratory rate normal; clear to auscultation. ABDOMEN: Soft, nontender, liver spleen not palpable, no masses palpable. PSYCH: Alert and oriented x3; mood and affect some anxietyl. MUSCULOSKELETAL:No Clubbing/cyanosis;muscles-grossly intact INVESTIGATIONS, reviewed in the clinical context: August 06: Potassium 4.5 AST 217 ALT 315 August 02:White count 5.7 hemoglobin 15.7 platelets 182 sodium 135 potassium 4.4 BUN 14 creatinine 1.05 AST 258 ALT 157 Urine drug screen positive for marijuana COVID-19 PCR: Not detected Assessment and plan: -Alcohol use disorder Thiamine 100 mg a day. -Chronic nicotine dependence, cigarette smoker Nicotine patch 21 -Recreational marijuana use -Obesity BMI 39.7 Dietitian consulted for weight loss measures -Alcoholic hepatitis Liver ultrasound noted follow by Dr. Sussy Lane outpatient -GERD Pepcid -Major depressive disorder, severe without psychotic features. Anxiety disorder unspecified Being followed by psychiatry [place], Ativan when necessary, trazodone, Effexor XR -Fenofibrate discontinued because of elevated liver enzymes Patient should have monthly liver enzymes checked. Follow-up with Dr. Sussy Lane outpatient. Follow liver enzymes Thank you Dr. Oropeza Past Medical History Past Medical History: Hyperlipidemia, Hypertension Additional Past Medical History / Comment(s): Etoh abuse History of Any Multi-Drug Resistant Organisms: None Reported Past Surgical History: No Surgical Hx Reported Past Psychological History: Anxiety, Depression Smoking Status: Current every day smoker Past Alcohol Use History: Abuse, Daily, Heavy Additional Past Alcohol Use History / Comment(s): fith to fith and half Past Drug Use History: Marijuana
[2023-08-06] MEDS: traZODone HCL 100 MG TAB PO SCH (21:12)
[2023-08-07] MEDS: METOPROLOL TARTRATE 25 MG TAB PO SCH ×2 (08:09→20:59)
[2023-08-07] MEDS: NICOTINE 21MG/24HR PATCH TRANSDERM SCH (08:09)
[2023-08-07] MEDS: LITHIUM CARBONATE 300 MG CAP PO SCH (08:10)
[2023-08-07] MEDS: VENLAFAXINE HCL ER 75 MG CAP PO SCH (08:10)
[2023-08-07] MEDS: MULTIVITAMINS, THERA 1 EACH TAB PO SCH (08:10)
[2023-08-07] MEDS: FAMOTIDINE 20 MG TAB PO SCH ×2 (08:10→20:57)
[2023-08-07] MEDS: FOLIC ACID 1 MG TAB PO SCH (08:10)
[2023-08-07 08:48] LABS: ALT 274 U/L (4-49); AST 147 U/L (17-59); African American GFR (CKD) >90 (>60 ml/min/1.73 sqM); Albumin 4.5 g/dL (3.5-5.0); Alkaline Phosphatase 59 U/L (38-126); Anion Gap 9 mmol/L; Blood Urea Nitrogen 14 mg/dL (9-20); Calcium 9.7 mg/dL (8.4-10.2); Carbon Dioxide 25 mmol/L (22-30); Chloride 104 mmol/L (98-107); Glucose 98 mg/dL (74-99); Non-African American GFR(CKD) >90 (>60 ml/min/1.73 sqM); Potassium 4.6 mmol/L (3.5-5.1); Sodium 138 mmol/L (137-145); Total Bilirubin 0.8 mg/dL (0.2-1.3); Total Protein 7.8 g/dL (6.3-8.2)
--- NOTE | 2023-08-07 12:00 | P.PN ---
Progress Note - Text Progress Note Date: 08/07/23 Interval history: Patient was seen today for psychiatric follow up. Patient was laying in his b ed. Patient states that he feels he is doing a bit better today, claims that he did have a bit of a dry mouth from the trazodone however states that he was able to sleep much better. He claims that he is feeling more positive today, states that his mood and anxiety. Improving. He claims that he would like to follow- up at [facility] as an outpatient to work on his alcohol use and wants to get back to work. He claims that his appetite is fair at this time. At this time is denying any auditory or visual hallucination. Denying suicidal or homicidal ideations intent or plan. She has been taking his medications not reporting any side effects today. mental Status examination: Appearance: Appears stated age, improving hygiene and grooming, average body built, and no specific features. Attitude and Behavior: Engaged, cooperative, maintained eye contact during course of interview. Motor Activity: Normal psychomotor activity. Speech: Normal rate, rhythm, articulation, and prosody. None pressured. Mood: " depressed but better improving Affect: improving mildly, appropriate to context and situation. Thought form: Logical, non-delusional, goal oriented. minimizing need for hos pitalization. Perception: Denies any auditory/ visual or tactile hallucinations. Orientation: Oriented to time, place, person, and situation. Insight & Judgment: Improving Impulse control: Improving Assessment: Major depressive disorder, severe without psychotic features Alcohol use disorder, severe Anxiety disorder, unspecified Cannabis use disorder Nicotine dependence PLAN: -Patient is admitted under voluntary status to MHU for stabilization of psychiatric symptoms and safety. Patient has signed adult voluntary form and medication consent and is placed in patient's chart. -Medications : continue Effexor XR 75 mg daily for mood/anxiety. Continue Trazodone 100 mg daily at bedtime for insomnia/mood. continue lithium 300 mg daily for mood adjunct -Ativan and Haldol PRN for agitation/aggression -abdominal U/S completed on 08/05 - showed mild hepatomegaly, nonspecific pattern possibly hepatic steatosis or hepatocellular disease. -NRT - nicotine patch -SW on board for discharge planning. Encourage patient to participate in groups to work on coping skills. patient is refusing rehab at this time. Patient is also declining anti cravings medications. likely discharge back home tomorrow if patient is doing well.
[2023-08-07] MEDS: ACETAMINOPHEN TAB 325 MG TAB PO PRN (14:01)
[2023-08-07] MEDS: traZODone HCL 100 MG TAB PO SCH (20:58)
[2023-08-08 06:47] VITALS: RESP 12; TEMP 97.5
[2023-08-08] MEDS: FAMOTIDINE 20 MG TAB PO SCH (07:53)
[2023-08-08] MEDS: VENLAFAXINE HCL ER 75 MG CAP PO SCH (07:53)
[2023-08-08] MEDS: LITHIUM CARBONATE 300 MG CAP PO SCH (07:53)
[2023-08-08] MEDS: MULTIVITAMINS, THERA 1 EACH TAB PO SCH (07:53)
[2023-08-08] MEDS: METOPROLOL TARTRATE 25 MG TAB PO SCH (07:54)
[2023-08-08] MEDS: NICOTINE 21MG/24HR PATCH TRANSDERM SCH (07:54)
[2023-08-08] MEDS: FOLIC ACID 1 MG TAB PO SCH (07:54)
[2023-08-08 07:59] VITALS: BP 145/95; PULSE 85
--- NOTE | 2023-08-08 12:25 | P.DS ---
Providers Date of admission: 08/04/23 16:00 Expected date of discharge: 08/08/23 Attending physician: James Oropeza MD Consults: 08/04/23 15:42 Consult Physician Routine Consulting Provider: Satish Huffman Consult Reason/Comments: H&P and medical Do you want consulting provider notified?: Yes, Notify in am Primary care physician: Talha Garg - Discharge Diagnosis(es) (1) Major depressive disorder, recurrent severe without psychotic features Current Visit: Yes Status: Acute Priority: High (2) Alcohol use disorder, severe, dependence Current Visit: Yes Status: Acute Priority: High (3) Anxiety disorder Current Visit: Yes Status: Acute Priority: Medium (4) Cannabis use disorder Current Visit: Yes Status: Acute Priority: Medium (5) Nicotine dependence Current Visit: Yes Status: Acute Priority: Low Hospital Course: Admission HPI: Admission note was completed by insurance underwriter "Patient is a 33 yo male, currently lives with his grandparents in a house, unemployed, single, no kids. According to consultation note documented by Dr Chaves "The patient is a 33-year-old male with a past medical history of depression, alcohol use disorder, and hypertension who presented to the ED with worsening depression and suicidal ideation in the context of heavy alcohol drinking. The psychiatric team was consulted to evaluate the patient due to reported suicidal ideation. The patient was evaluated in his room on the medical floor. He reported that he came to the emergency department expecting to go to psychiatric treatment but was told that no beds were available in the psychiatric unit, and he may be transferred to another hospital. The patient endorsed that he came to the ER b ecause he was feeling increasingly depressed and having suicidal thoughts in the context of heavy drinking, consuming "almost 1/5 daily." He mentioned losing his job and his inability to stop drinking alcohol. The patient reports that his depression started during his teenage years and may be related to feeling neglected or ignored by his mother, as she was always isolated. He had previously tried antidepressants, including Celexa and Zoloft, but did not experience any benefits from them. He also attempted different types of counseling, such as mental health therapy and substance use counseling, without any improvement in his depressive symptoms. The patient reported that his primary care physician prescribed Trazodone to help with insomnia. He described symptoms of depression, including a low mood, hopelessness, lack of motivation, very low self-esteem, constant fatigue, and occasional suicidal ideation. The patient noted a worsening of his depression and suicidal ideation over the past few days due to heavy drinking, as he has been consuming 1/5 of liquor daily for the past few weeks. He reported feeling unsafe at home, especially since he lives with his grandparents, who are also heavy drinkers. The patient mentioned very poor sleep, difficulty focusing, and a decreased appetite. The patient explained that he started heavy drinking about five years ago and escalated to excessive drinking over the past year, with an average of 1/5 daily, occasionally binge-drinking non-stop for two weeks. He attributed the main trigger for his drinking to his depression, as he tries to numb his emotions. The patient also reported severe anxiety with uncontrolled worry, inability to relax, and a constant feeling of unease. He denied current or previous symptoms of psychosis, hallucinations, paranoid ideation, or delusions. The patient denied current or previous symptoms of abdullahi, including periods of elevated mood, grandiosity, bursts of energy without the need for sleep, or impulsive/uninhibited behavior. The patient mentioned that he had an outburst of anger at his workplace a few days ago, which resulted in his job loss." patient was seen today for psych assessment and admission today by insurance underwriter. he corroborated the information given previously, spoke about the increased etoh and the issues at work where he was impulsive, aggressive. he also spoke about depression, anxiety. he claims that he was feeling suicidal before coming in the hospital however claims that this has improved. Claimed that he was having increasing work stress, more work load, spoke about binge drinking alcohol for the past 2-3 years. States that he was drinking about a fifth of vodka a day, he claims that he withdrew from the alcohol on his own for 5 or 6 days at home before coming to the hospital. States that he does not have a history of DTs or withdrawal seizures. He states that he is sleeping about 6-8 hours of sleep with trazodone on board, claims that his appetite is fair. States that his mood has been improving since being on the mental health unit. At this time he is denying any current suicidal or homicidal ideations intent or plan. Denied any auditory or visual halluci nations." Hospital course: Upon admission to the unit patient was directable and agreeable to commence treatment and signed adult voluntary form . Patient got along well with other patients on the unit and followed unit protocol. Patient was compliant with the medications and denied any side effects throughout hospital course. Patient was started on Effexor XR 75 mg daily for mood/anxiety, trazodone 100 mg daily at bedtime when necessary for insomnia/mood, lithium 300 mg daily for mood adjunct. Patient spoke of his stressors and engaged in therapy both group and individual. Patient was also seen by medical team for history and physical exam. Due to patient's elevated LFTs, a abdominal ultrasound was ordered and completed on 08/05 which showed mild hepatomegaly, nonspecific pattern in the liver possibly hepatic steatosis or hepatocellular disease. Patient will be given a follow-up comprehensive panel to be ordered for blood work in 2 weeks and he will be following up with his PCP. Throughout the course of the hospitalization patient gradually improved with regards to mood, anxiety, suicidal thoughts, sleep and returned back to their baseline level of functioning. On the day of discharge patient denied any suicidal or homicidal ideations intent or plan denied any auditory or visual hallucinations. Patient endorsed wanting to live for his health and family. The patient denied any access to guns or weapons. Patient denied any paranoia and did not endorse any delusions. Patient does have a significant history of substance abuse and was counseled on abstaining from all substances including alcohol and marijuana. Patient was offered however declined inpatient substance-abuse rehab. Patient elected to do outpatient substance use treatment program through [facility]. Patient w as also counseled on the medications and need for regular compliance and was encouraged to follow-up with their outpatient appointment for mental health and also for primary care. Prior to discharge a family meeting will be arranged by social service assistant to answer any questions and ensure safety upon discharge. Mental status exam: General Appearance: Patient appears to be mildly overweight, stated age is alert, pleasant, and cooperative. Patient is in no acute distress and has improved hygiene and grooming Behavior: Patient is calmly seated without any agitated behavior. Speech: Patient's speech is fluent and nonpressured. Mood/Affect: Patient reports their mood is "better", affect is congruent and euthymic. Suicidality/Homicidality: Patient denies having any suicidal or homicidal ideation intent or plan. Perceptions: Patient denies any auditory or visual hallucinations. Though content/process: There is no evidence of any delusional thought content and thought process is linear and goal-directed. more future oriented Memory and concentration: AOX3, grossly intact for the purposes of this session. Can spell "WORLD" backwards correctly. Judgment and insight: improved with guarded prognosis Impression: Major depressive disorder, severe without psychotic features Alcohol use disorder severe Anxiety disorder unspecified Cannabis use disorder Nicotine dependence Plan: -Continue with discharge today as patient has improved and stabilized psychiatrically and is not currently an imminent threat to himself and/or others. Patient will remain at chronically elevated risk for harm to self and/or others due to his impulsivity and polysubstance abuse. -Continue medications: Effexor XR 75 mg daily for mood/90, trazodone 100 mg daily at bedtime when necessary for insomnia/mood, lithium 300 mg daily for mood adjunct, patient was offered anti craving medications for alcohol use however patient declined them. -Patient was counseled on the need for medication compliance and appropriate follow-up at mental health and also primary care for medical issues. Patient verbalized understanding and agreed. -Social work to arrange for and conduct family meeting to ensure safety upon discharge and answer any questions/concerns. Social work also to arrange for patients follow up appointments with [facility] for psychiatric care along with follow up with primary care provider. -Patient counseled on abstaining from recreational drugs and marijuana and alcohol. Was informed/educated on the adverse effects on their physical and mental health. Patient verbally agreed and understood. Patient was offered substance abuse treatment however declined at this time. -Patient was instructed to return to the hospital or seek immediate medical care if their psychiatric or medical symptoms do worsen or reoccur. Allergies Allergy/AdvReac Type Severity Reaction Status Date / Time Penicillins Allergy Rash/Hives Verified 08/01/23 18:19 Laboratory Results Sodium 138 mmol/L (137-145) 08/07/23 08:05 Potassium 4.6 mmol/L (3.5-5.1) 08/07/23 08:05 Chloride 104 mmol/L (98-107) 08/07/23 08:05 Carbon Dioxide 25 mmol/L (22-30) 08/07/23 08:05 Anion Gap 9 mmol/L 08/07/23 08:05 BUN 14 mg/dL (9-20) 08/07/23 08:05 Creatinine 0.88 mg/dL (0.66-1.25) 08/07/23 08:05 Est GFR (CKD-EPI)AfAm >90 (>60 ml/min/1.73 sqM) 08/07/23 08:05 Est GFR (CKD-EPI)NonAf >90 (>60 ml/min/1.73 sqM) 08/07/23 08:05 Glucose 98 mg/dL (74-99) 08/07/23 08:05 Calcium 9.7 mg/dL (8.4-10.2) 08/07/23 08:05 Total Bilirubin 0.8 mg/dL (0.2-1.3) 08/07/23 08:05 AST 147 U/L (17-59) H 08/07/23 08:05 ALT 274 U/L (4-49) H 08/07/23 08:05 Alkaline Phosphatase 59 U/L (38-126) 08/07/23 08:05 Total Protein 7.8 g/dL (6.3-8.2) 08/07/23 08:05 Albumin 4.5 g/dL (3.5-5.0) 08/07/23 08:05 Vital Signs Temp 97.5 F L 08/08/23 06:38 Pulse 85 08/08/23 07:55 Resp 12 08/08/23 06:38 BP 145/95 08/08/23 07:55 Pulse Ox 98 08/07/23 07:03 FiO2 Patient Condition at Discharge: Stable Plan - Discharge Summary Discharge Rx Participant: Yes New Discharge Prescriptions: New traZODone HCL [Desyrel] 50 - 100 mg PO HS PRN 30 Days #30 tab PRN Reason: Insomnia Metoprolol Tartrate [Lopressor] 25 mg PO BID 30 Days #60 tab Venlafaxine HCl ER [Effexor XR] 75 mg PO DAILY 30 Days #30 cap [place] Carbonate 300 mg PO DAILY 30 Days #30 cap Continue Nicotine 21Mg/24Hr Patch [Habitrol] 1 patch TRANSDERM DAILY 14 Days #14 patch Multivitamins, Thera [Multivitamin (formulary)] 1 tab PO DAILY 30 Days #30 tab Famotidine [Pepcid] 20 mg PO BID 30 Days #60 tab Nicotine Gum (Polacrilex) [Nicorette] 2 mg BUCCAL Q2HR PRN pieceofgum PRN Reason: Nicotine Cravings Folic Acid 1 mg PO DAILY 30 Days #30 tab Discontinued LORazepam [Ativan] 1 mg PO Q12HR PRN tab PRN Reason: Anxiety Venlafaxine HCl ER [Effexor XR] 37.5 mg PO DAILY cap Fenofibrate,Micronized [Fenofibrate] 134 mg PO DAILY Vitamin B Complex 1 cap PO DAILY Mag Hydrox/Aluminum Hyd/Simeth [Mylanta Maximum Strength Liq] 10 - 20 ml PO ACHS PRN PRN Reason: Acid indigestion Metoprolol Succinate (ER) [Toprol Xl] 25 mg PO DAILY #30 tab traZODone HCL [Desyrel] 50 mg PO HS PRN PRN Reason: Insomnia Discharge Medication List Nicotine Gum (Polacrilex) [Nicorette] 2 mg BUCCAL Q2HR PRN pieceofgum 08/04/23 [Rx] Famotidine [Pepcid] 20 mg PO BID 30 Days #60 tab 08/08/23 [Rx] Folic Acid 1 mg PO DAILY 30 Days #30 tab 08/08/23 [Rx] [place] Carbonate 300 mg PO DAILY 30 Days #30 cap 08/08/23 [Rx] Metoprolol Tartrate [Lopressor] 25 mg PO BID 30 Days #60 tab 08/08/23 [Rx] Multivitamins, Thera [Multivitamin (formulary)] 1 tab PO DAILY 30 Days #30 tab 08/08/23 [Rx] Nicotine 21Mg/24Hr Patch [Habitrol] 1 patch TRANSDERM DAILY 14 Days #14 patch 08/08/23 [Rx] Venlafaxine HCl ER [Effexor XR] 75 mg PO DAILY 30 Days #30 cap 08/08/23 [Rx] traZODone HCL [Desyrel] 50 - 100 mg PO HS PRN 30 Days #30 tab 08/08/23 [Rx] Follow up Appointment(s)/Referral(s): [facility] 10:00 am (with [place]) [facility] [NON-STAFF] - 1 Week Patient Instructions/Handouts: How to Stop Smoking (DC), Depression (DC), A lcohol Intoxication (DC) Activity/Diet/Wound Care/Special Instructions: Avoid the use of street drugs and alcohol. Take all medications as prescribed. When you are in need of refills on your medications, please contact your medical provider and/or outpatient psychiatrist/provider to have this done. Please go to your scheduled outpatient appointment for aftercare treatment. If symptoms return or become worse, call the crisis line at and/or go to the nearest emergency room for evaluation. National Suicide Hotline 178. Per Dr. Huffman the patient needs to have his liver enzymes monitored monthly due to his current medication regime. Discharge/Stand Alone Forms: AA Meetings [place] Discharge Disposition: HOME SELF-CARE
== END 2023-08-08 12:31 | disposition home or self-care (01) | DRG 751 ==
LOC: 3MHU 16:00
PROVIDERS: ADMIT Psychiatry & Neurology Psychiatry; ATTEND Psychiatry & Neurology Psychiatry
DX: F33.2 Major depressive disorder, recurrent severe without psychotic features (principal); R45.851 Suicidal ideations; K70.10 Alcoholic hepatitis without ascites; F10.239 Alcohol dependence with withdrawal, unspecified; F12.10 Cannabis abuse, uncomplicated; F41.9 Anxiety disorder, unspecified; E78.1 Pure hyperglyceridemia; G47.00 Insomnia, unspecified; I10 Essential (primary) hypertension; K21.9 Gastro-esophageal reflux disease without esophagitis; K59.00 Constipation, unspecified; R79.89 Other specified abnormal findings of blood chemistry; E66.9 Obesity, unspecified; Z68.39 Body mass index [BMI] 39.0-39.9, adult; F17.210 Nicotine dependence, cigarettes, uncomplicated; Z71.6 Tobacco abuse counseling; Z79.899 Other long term (current) drug therapy; Z71.3 Dietary counseling and surveillance; Z56.0 Unemployment, unspecified; Z71.51 Drug abuse counseling and surveillance of drug abuser; Z71.41 Alcohol abuse counseling and surveillance of alcoholic; Z88.0 Allergy status to penicillin
CPT/HCPCS: 76705; 80053

== ENCOUNTER 2023-08-25 04:50 | Emergency (ER) | payer OTHER ==
[2023-08-25 05:05] VITALS: TEMP 98.4
--- NOTE | 2023-08-25 05:24 | ED ---
Psych HPI - General Source: patient, family Mode of arrival: ambulatory <Raisa Hickman P - Last Filed: 08/25/23 05:23> - General Source: patient Mode of arrival: ambulatory Limitations: no limitations <Floyd Greer - Last Filed: 08/25/23 10:47> - General Chief Complaint: Alcohol Stated Complaint: etoh withdrawl - History of Present Illness Initial Comments: Patient is a pleasant 33-year-old male presenting to the emergency department with concerns with alcohol problems. Patient wasn't 3 W. a few weeks ago. Patient had suicidal thoughts at that time however none at this time. Patient did drink, last drink was yesterday. Patient states he did see some shadows prior to his last drink. Patient states he feels a little bit shaky at this time. No suicidal or homicidal thoughts. (Floyd Greer) - Related Data Previous Rx's Medication Instructions Recorded Nicotine Gum (Polacrilex) 2 mg BUCCAL Q2HR PRN pieceofgum 08/04/23 [[place]oret[place]] Famotidine [Pepcid] 20 mg PO BID 30 Days #60 tab 08/08/23 Folic Acid 1 mg PO DAILY 30 Days #30 tab 08/08/23 [place] Carbonate 300 mg PO DAILY 30 Days #30 cap 08/08/23 Metoprolol Tartrate [Lopressor] 25 mg PO BID 30 Days #60 tab 08/08/23 Multivitamins, Thera [Multivitamin 1 tab PO DAILY 30 Days #30 tab 08/08/23 (formulary)] Nicotine 21Mg/24Hr Patch [Habitrol] 1 patch TRANSDERM DAILY 14 Days 08/08/23 #14 patch Venlafaxine HCl ER [Effexor XR] 75 mg PO DAILY 30 Days #30 cap 08/08/23 traZODone HCL [Desyrel] 50 - 100 mg PO HS PRN 30 Days #30 08/08/23 tab Allergies Allergy/AdvReac Type Severity Reaction Status Date / Time Penicillins Allergy Rash/Hives Verified 08/01/23 18:19 Review of Systems ROS Other: All systems not noted in ROS Statement are negative. <Raisa Hickman - Last Filed: 08/25/23 05:23> ROS Other: All systems not noted in ROS Statement are negative. Constitutional: Denies: fever Eyes: Denies: eye pain ENT: Denies: ear pain Respiratory: Denies: cough, dyspnea Cardiovascular: Denies: chest pain Endocrine: Denies: fatigue Gastrointestinal: Denies: abdominal pain, vomiting Genitourinary: Denies: dysuria Musculoskeletal: Denies: back pain Skin: Denies: rash Psychiatric: Reports: anxiety <Floyd Greer - Last Filed: 08/25/23 10:47> ROS Statement: Those systems with pertinent positive or pertinent negative responses have been documented in the HPI. Past Medical History Past Medical History: Hyperlipidemia, Hypertension Additional Past Medical History / Comment(s): Etoh abuse History of Any Multi-Drug Resistant Organisms: None Reported Past Surgical History: No Surgical Hx Reported Past Psychological History: Anxiety, Depression Smoking Status: Current every day smoker Past Alcohol Use History: Abuse, Daily, Heavy Past Drug Use History: Marijuana <Raisa Hickman P - Last Filed: 08/25/23 05:23> General Exam Limitations: no limitations <Raisa Hickman P - Last Filed: 08/25/23 05:23> Limitations: no limitations General appearance: alert, in no apparent distress Head exam: Present: atraumatic Eye exam: Present: normal appearance Neck exam: Present: normal inspection Respiratory exam: Present: normal lung sounds bilaterally Cardiovascular Exam: Present: regular rate, normal rhythm GI/Abdominal exam: Present: soft. Absent: tenderness Extremities exam: Present: normal inspection Neurological exam: Present: alert Psychiatric exam: Present: normal affect, normal mood. Absent: agitated, homicidal ideation, suicidal ideation <Floyd Greer Last Filed: 08/25/23 10:47> Course Vital Signs 08/25/23 05:00 Temperature 98.4 F Pulse Rate 109 H Respiratory 20 Rate Blood Pressure 154/102 O2 Sat by Pulse 97 Oximetry Medical Decision Making <Floyd Greer Last Filed: 08/25/23 10:47> - Medical Decision Making Was pt. sent in by a medical professional or institution (, PA, MANUFACTURING SCHEDULER, urgent care, hospital, or assisted...) When possible be specific @ -No Did you speak to anyone other than the patient for history (EMS, parent, family, police, friend...)? What history was obtained from this source @ -No Did you review nursing and triage notes (agree or disagree)? Why? @ -I reviewed and agree with nursing and triage notes Were old charts reviewed (outside hosp., previous admission, EMS record, old EKG, old radiological studies, urgent care reports/EKG's, assisted records)? Report findings @ -No old charts were reviewed Differential Diagnosis (chest pain, altered mental status, abdominal pain women, abdominal pain men, vaginal bleeding, weakness, fever, dyspnea, syncope, headache, dizziness, GI bleed, back pain, seizure, CVA, palpatations, mental health, musculoskeletal)? @ -Differential Mental Health Depression, anxiety, bipolar, psychosis, schizophrenia, borderline personality, situational depression, adjustment disorder, behavioral disorder, brain tumor, malingering, substance abuse, encephalopathy, medication reaction, dementia, hypothyroidism, degenerative neurologic disorder, lupus.... This is not meant to be all-inclusive list EKG interpreted by me (3pts min.). @ -As above X-rays interpreted by me (1pt min.). @ -None done CT interpreted by me (1pt min.). @ -None done U/S interpreted by me (1pt. min.). @ -None done What testing was considered but not performed or refused? (CT, X-rays, U/S, labs)? Why? @ -None What meds were considered but not given or refused? Why? @ -None Did you discuss the management of the patient with other professionals (professionals i.e. , PA, MANUFACTURING SCHEDULER, lab, RT, psych nurse, healthcare social worker, payloader operator, teacher, associate loan officer, egg caser)? Give summary @ -No Was smoking cessation discussed for >3mins.? @ -No Was critical care preformed (if so, how long)? @ -No Were there social determinants of health that impacted care today? How? (Homelessness, low income, unemployed, alcoholism, drug addiction, transportation, low edu. Level, literacy, decrease access to med. care, half-way, rehab)? @ -No Was there de-escalation of care discussed even if they declined (Discuss DNR or withdrawal of care, Hospice)? DNR status @ -No What co-morbidities impacted this encounter? (DM, HTN, Smoking, COPD, CAD, Cancer, CVA, ARF, Chemo, Hep., AIDS, mental health diagnosis, sleep apnea, morbid obesity)? @ -None Was patient admitted / discharged? Hospital course, mention meds given and route, prescriptions, significant lab abnormalities, going to OR and other pertinent info. @ -Patient does not have any suicidal or homicidal thoughts. Patient did see some shadows while he was drinking. Patient does have established follow-up with community mental health. Patient is comfortable with discharge with Ativan and Ativan to go. Vitals will be rechecked prior to this. Undiagnosed new problem with uncertain prognosis? @ -No Drug Therapy requiring intensive monitoring for toxicity (Heparin, Nitro, Insulin, Cardizem)? @ -No Were any procedures done? @ -No Diagnosis/symptom? @ -Alcohol withdrawal Acute, or Chronic, or Acute on Chronic? @ -Acute Uncomplicated (without systemic symptoms) or Complicated (systemic symptoms)? @ -default Side effects of treatment? @ -No Exacerbation, Progression, or Severe Exacerbation? @ -No Poses a threat to life or bodily function? How? (Chest pain, [place], [place], pneumonia, PE, COPD, DKA, ARF, appy, cholecystitis, CVA, Diverticulitis, Homicidal, Suicidal, threat to staff... and all critical care pts) @ -No (Floyd Greer) Disposition <Raisa Hickman - Last Filed: 08/25/23 05:23> Is patient prescribed a controlled substance at d/c from ED?: No Time of Disposition: 10:47 <Floyd Greer - Last Filed: 08/25/23 10:47> Clinical Impression: Alcohol withdrawal Disposition: HOME SELF-CARE Condition: Stable Instructions (If sedation given, give patient instructions): Alcohol Withdrawal (ED) Additional Instructions: Please do follow-up with your primary care physician in the next day or 2 for recheck. Please follow-up with [facility] as planned. Consider follow-up with rehab facility such as [place]. Return for increased heart rate, hallucinations, uncontrolled vomiting or pain, worsening or change in symptoms, confusion or other concerns. Referrals: Talha Garg MD [Primary Care Provider] - 1-2 days
[2023-08-25] MEDS ORDERED: LORazepam 1 MG TAB PO STA ×2 (10:47)
[2023-08-25 11:27] VITALS: BP 156/88; PULSE 100; RESP 18
== END 2023-08-25 11:07 | disposition home or self-care (01) ==
LOC: EC 04:50
DX: F10.239 Alcohol dependence with withdrawal, unspecified (principal); I10 Essential (primary) hypertension; F17.200 Nicotine dependence, unspecified, uncomplicated; F12.90 Cannabis use, unspecified, uncomplicated; Z86.59 Personal history of other mental and behavioral disorders; Z88.0 Allergy status to penicillin
CPT/HCPCS: 99284